=== PATIENT | female | born 1985 | race Caucasian/White ===

== ENCOUNTER 2017-02-12 08:42 | Emergency (ER) | payer OTHER ==
[2017-02-12 08:47] VITALS: BP 152/77; PULSE 87; RESP 16; TEMP 98.2
--- NOTE | 2017-02-12 08:54 | ED ---
ENT HPI - General Chief complaint: ENT Stated complaint: cold symptoms, migraines, sore throat Time Seen by Provider: 02/12/17 08:48 Source: patient Mode of arrival: ambulatory Limitations: no limitations - History of Present Illness Initial comments: 31-year-old female presents emergency Department chief complaint of cough cold runny nose for 1 week. Patient states his not getting worse but not getting much better. Patient states that the muscles of some her symptoms and they are improving. Patient denies fever or chills. Patient with right ear pain, runny nose. Patient states her cough is productive at times. Patient has not been taking any Tylenol or Motrin [id number] or any other cough and cold medications. Patient denies any difficulty swallowing. Denies any nausea vomiting diarrhea constipation. - Related Data Home Medications Medication Instructions Recorded Confirmed No Known Home Medications [No 02/12/17 02/12/17 Known Home Medications] Allergies Allergy/AdvReac Type Severity Reaction Status Date / Time No Known Allergies Allergy Verified 02/12/17 08:56 Review of Systems ROS Statement: Those systems with pertinent positive or pertinent negative responses have been documented in the HPI. ROS Other: All systems not noted in ROS Statement are negative. Past Medical History Past Medical History: No Reported History History of Any Multi-Drug Resistant Organisms: MRSA Date of last positivie culture/infection: 03/15/2014 MDRO Source:: Left arm Past Surgical History: Section Past Anesthesia/Blood Transfusion Reactions: No Reported Reaction, Postoperative Nausea & Vomiting (PONV) Past Psychological History: Depression Smoking Status: Never smoker Past Alcohol Use History: None Reported Past Drug Use History: None Reported General Exam Limitations: no limitations General appearance: alert, in no apparent distress Head exam: Present: atraumatic, normocephalic, normal inspection Eye exam: Present: normal appearance, PERRL, EOMI. Absent: scleral icterus, conjunctival injection, periorbital swelling ENT exam: Present: normal exam, mucous membranes moist, TM's normal bilaterally (Minimal erythema at top of the right TM), normal external ear exam. Absent: normal oropharynx (Post nasal drainage) Neck exam: Present: normal inspection, full ROM. Absent: tenderness, meningismus, lymphadenopathy Respiratory exam: Present: normal lung sounds bilaterally. Absent: respiratory distress, wheezes, rales, rhonchi, stridor Cardiovascular Exam: Present: regular rate, normal rhythm, normal heart sounds. Absent: systolic murmur, diastolic murmur, rubs, gallop, clicks Back exam: Absent: CVA tenderness (R), CVA tenderness (L) Neurological exam: Present: alert, oriented X3, CN II-XII intact Skin exam: Present: warm, dry, intact, normal color. Absent: rash Course Vital Signs 02/12/17 08:43 Temperature 98.2 F Pulse Rate 87 Respiratory 16 Rate Blood Pressure 152/77 O2 Sat by Pulse 98 Oximetry Medical Decision Making - Medical Decision Making 31-year-old female presented emergency department for cold like symptoms. Patient has a viral URI. Patient did have minimal erythema of the right TM but does not appear to be infected. This is more injection. Patient advised to take [id number] cough and cold medications as directed. Patient will follow with primary care physician. Return parameters were discussed. Disposition Clinical Impression: Viral upper respiratory infection, Otalgia Disposition: HOME SELF-CARE Condition: Stable Instructions: Upper Respiratory Infection (ED) Additional Instructions: Take dxvv-pki-doxpami cough and cold medications as directed.Please return to the Emergency Department if symptoms worsen or any other concerns. Time of Disposition: 09:06
--- NOTE | 2017-02-12 09:30 | XR ---
EXAMINATION TYPE: XR chest 2V DATE OF EXAM: 02/12/2017 9:04 AM COMPARISON: 07/25/2012 HISTORY: 31-year-old female with pain TECHNIQUE: PA and lateral views FINDINGS: The cardiomediastinal silhouette, aorta, and pulmonary vasculature are within normal limits. Lungs an d pleural spaces are clear. IMPRESSION: No acute cardiopulmonary process.
== END 2017-02-12 09:12 | disposition home or self-care (01) ==
LOC: EC 08:42
DX: J06.9 Acute upper respiratory infection, unspecified (principal); H92.01 Otalgia, right ear
CPT/HCPCS: 71020; 99283

== ENCOUNTER 2017-03-04 22:00 | Emergency (ER) | payer OTHER ==
[2017-03-04 22:07] VITALS: TEMP 98.5
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
--- NOTE | 2017-03-04 23:04 | XR ---
EXAM: XR Left Finger(s), 2 or More Views CLINICAL HISTORY: Reason: Pain TECHNIQUE: Frontal, lateral and oblique views of finger(s) of the left hand. COMPARISON: No relevant prior studies available. FINDINGS: Bones/joints: No acute fracture. No dislocation. Soft tissues: Tiny 1 mm density in the dorsal soft tissues of the ring finger, near the distal aspect of the proximal phalanx. Overlying soft tissue edema. IMPRESSION: Tiny 1 mm density in the dorsal soft tissues of the ring finger, near the distal aspect of the proximal phalanx, suspicious for foreign body. Overlying soft tissue edema.
[2017-03-04 23:34] VITALS: BP 152/84; PULSE 78; RESP 16
== END 2017-03-04 23:34 | disposition home or self-care (01) ==
LOC: EC 22:00
DX: S60.455A Superficial foreign body of left ring finger, initial encounter (principal); W25.XXXA Contact with sharp glass, initial encounter
CPT/HCPCS: 10120; 99283

== ENCOUNTER 2017-06-11 15:51 | Emergency (ER) | payer OTHER ==
[2017-06-11 16:05] VITALS: BP 148/88; PULSE 100; RESP 20; TEMP 99.2
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
== END 2017-06-11 17:24 | disposition left against medical advice (07) ==
LOC: EC 15:51
DX: S09.90XA Unspecified injury of head, initial encounter (principal); Z86.73 Personal history of transient ischemic attack (TIA), and cerebral infarction without residual deficits; Z53.29 Procedure and treatment not carried out because of patient's decision for other reasons; Y04.0XXA Assault by unarmed brawl or fight, initial encounter
CPT/HCPCS: 70450; 80306; 81025; 99284

== ENCOUNTER 2017-07-05 12:21 | Emergency (ER) | payer OTHER ==
[2017-07-05 12:45] VITALS: RESP 18
[2017-07-05 13:19] LABS: Appearance,Urine Cloudy (Clear); Bilirubin,Urine Negative (Negative); Glucose,Urine (UA) Negative (Negative); Ketones,Urine Negative (Negative); Leukocyte Esterase,Urine Large (Negative); Mucus,Urine Moderate /hpf; Nitrite,Urine Negative (Negative); Particle Count 7295; Protein,Urine 1+ (Negative); RBC,Urine 6 /hpf (0-5); Specific Gravity,Urine 1.024 (1.001-1.035); Squamous Epithelial Cell,Urine 3 /hpf (0-4); UA Billing (MACRO vs. MICRO) MICRO; WBC,Urine >182 /hpf (0-5)
[2017-07-05] MEDS ORDERED: cefTRIAXone 1,000 MG VIAL (IM USE) IM STA (13:49)
--- NOTE | 2017-07-05 13:53 | ED ---
General Adult HPI - General Chief complaint: Urogenital Stated complaint: Poss UTI 12 weeks Time Seen by Provider: 07/05/17 13:42 Source: patient, RN notes reviewed Mode of arrival: ambulatory Limitations: no limitations - History of Present Illness Initial comments: Patient 31-year-old female who presents emergency room today with chief complaint of an tract infection. She does not that she is approximately 12 weeks . She states that she's had positive test at her [facility]. Patient does admit to dysuria or burning sensation and increased urinary frequency. Patient states feels similar to urinary tract infections that she's had in the past. She denies any complaints symptoms. Denies any vaginal bleeding or discharge. Patient denies any recent fever, chills, shortness of breath, chest pain, back pain, abdominal pain, nausea or vomiting, numbness or tingling, constipation or diarrhea, headaches or visual changes, or any other complaints. - Related Data Previous Rx's Medication Instructions Recorded Nitrofurantoin Monohyd/M-Cryst 100 mg PO Q12HR #14 cap 07/05/17 [Macrobid] Phenazopyridine [Pyridium] 100 mg PO TID 3 Days 07/05/17 Allergies Allergy/AdvReac Type Severity Reaction Status Date / Time No Known Allergies Allergy Verified 07/05/17 12:45 Review of Systems ROS Statement: Those systems with pertinent positive or pertinent negative responses have been documented in the HPI. ROS Other: All systems not noted in ROS Statement are negative. Past Medical History Past Medical History: No Reported History History of Any Multi-Drug Resistant Organisms: MRSA Date of last positivie culture/infection: 03/15/2014 MDRO Source:: Left arm Past Surgical History: Section Past Anesthesia/Blood Transfusion Reactions: No Reported Reaction, Postoperative Nausea & Vomiting (PONV) Past Psychological History: Depression Smoking Status: Never smoker Past Alcohol Use History: None Reported Past Drug Use History: None Reported General Exam - General Exam Comments Initial Comments: General: The patient is awake and alert, in no distress, and does not appear acutely ill. Eye: Pupils are equal, round and reactive to light, extra-ocular movements are intact. No nystagmus. There is normal conjunctiva bilaterally. No signs of icterus. Ears, nose, mouth and throat: There are moist mucous membranes and no oral lesions. Neck: The neck is supple, there is no tenderness or JVD. Cardiovascular: There is a regular rate and rhythm. No murmur, rub or gallop is appreciated. Respiratory: Lungs are clear to auscultation, respirations are non-labored, breath sounds are equal. No wheezes, stridor, rales, or rhonchi. Gastrointestinal: Soft, non-distended, non-tender abdomen without masses or organomegaly noted. There is no rebound or guarding present. No CVA tenderness. Bowel sounds are unremarkable. Musculoskeletal: Normal ROM, no tenderness. Strength 5/5. Sensation intact. Pulses equal bilaterally 2+. Neurological: A&O x 3. CN II-XII intact, There are no obvious motor or sensory deficits. Coordination appears grossly intact. Speech is normal. Skin: Skin is warm and dry and no rashes or lesions are noted. Psychiatric: Cooperative, appropriate mood & affect, normal judgment. Limitations: no limitations Course Vital Signs 07/05/17 12:43 Temperature 97.7 F Pulse Rate 80 Respiratory 18 Rate Blood Pressure 148/85 O2 Sat by Pulse 98 Oximetry Medical Decision Making - Medical Decision Making Patient's vitals are stable here the emergency room. No fever. Patient shows no signs of distress. Abdomen soft nontender. No flank pain. Patient's test negative here in the Emergency room. This was discussed with the patient. Patient does have evidence for urinary tract infection. Urine culture is pending. Patient will be given dose Rocephin here in the emergency room continue on antibiotics of Macrobid at home. She is advised to follow-up with her [facility] in the next 1-2 days. Advised return here to the emergency room symptoms increase worsen or for any other concerns. - Lab Data Lab Results 07/05/17 07/05/17 Range/Units 12:58 12:58 Urine Color Yellow Urine Appearance Cloudy H (Clear) Urine pH 6.0 (5.0-8.0) Ur Specific [place] 1.024 (1.001-1.035) Urine Protein 1+ H (Negative) Urine Glucose (UA) Negative (Negative) Urine Ketones Negative (Negative) Urine Blood Small H (Negative) Urine Nitrite Negative (Negative) Urine Bilirubin Negative (Negative) Urine Urobilinogen 2.0 (<2.0) mg/dL Ur Leukocyte Esterase Large H (Negative) Urine RBC 6 H (0-5) /hpf Urine WBC >182 H (0-5) /hpf Ur Squamous Epith Cells 3 (0-4) /hpf Urine Mucus Moderate H (None) /hpf Urine HCG, Qual Not Detected (Not Detectd) Disposition Clinical Impression: UTI (urinary tract infection) Disposition: HOME SELF-CARE Condition: Good Instructions: Urinary Tract Infection in Women (ED) Additional Instructions: Please use medication as discussed. Please follow-up with [facility] in the next 2 days. Please return to emergency room if the symptoms increase or worsen or for any other concerns. Prescriptions: Nitrofurantoin Monohyd/M-Cryst [Macrobid] 100 mg PO Q12HR #14 cap Phenazopyridine [Pyridium] 100 mg PO TID 3 Days Referrals: Deniz Carpenter MD [Primary Care Provider] - 1-2 days Dilia Rodriguez DO [Doctor of Osteopathic Medicine] - 1-2 days Time of Disposition: 13:52
[2017-07-05 14:05] VITALS: BP 127/68; PULSE 88; TEMP 98.2
== END 2017-07-05 14:04 | disposition home or self-care (01) ==
LOC: EC 12:21
DX: O23.41 Unspecified infection of urinary tract in pregnancy, first trimester (principal); Z3A.12 12 weeks gestation of pregnancy; Z86.14 Personal history of Methicillin resistant Staphylococcus aureus infection
CPT/HCPCS: 81001; 81025; 87086; 99283; 96372; J0696

== ENCOUNTER 2017-09-30 09:20 | Emergency (ER) | payer OTHER ==
[2017-09-30 09:26] VITALS: RESP 16
[2017-09-30] MEDS ORDERED: ONDANSETRON 4 MG/2 ML VIAL IVP STA ×2 (10:12→10:45)
[2017-09-30] MEDS ORDERED: SODIUM CHLORIDE 0.9% 2,000 ML IV STA (10:12)
[2017-09-30] MEDS ORDERED: RX INFO: IV CONTRAST WAS GIVEN 1 EACH MISC MISCELLANE PRN (10:12)
[2017-09-30 10:31] LABS: Basophils % (A) 0 %; CH 25.3; CHCM 31.4; Eosinophils # (A) 0.1 k/uL (0-0.7); Eosinophils % (A) 1 %; HCT 39.7 % (34.0-46.0); HDW 2.77; HGB 12.4 gm/dL (11.4-16.0); Hypochromasia Slight; Luc # (Auto) 0.07; Luc % (Auto) 1; Lymphocytes # (A) 0.7 k/uL (1.0-4.8); Lymphocytes % (A) 8 %; MCH 25.2 pg (25.0-35.0); MCHC 31.2 g/dL (31.0-37.0); MCV 80.8 fL (80.0-100.0); Mean Platelet Volume 7.1; Monocytes # (A) 0.3 k/uL (0-1.0); Monocytes % (A) 4 %; Neutrophils # (A) 7.4 k/uL (1.3-7.7); Neutrophils % (A) 86 %; RBC 4.91 m/uL (3.80-5.40); RDW 15.8 % (11.5-15.5); WBC 8.6 k/uL (3.8-10.6); WBC (Perox) 8.85
[2017-09-30 10:39] LABS: ALT 31 U/L (9-52); AST 20 U/L (14-36); Alkaline Phosphatase 96 U/L (38-126); Amylase 54 U/L (30-110); Anion Gap 11 mmol/L; Blood Urea Nitrogen 18 mg/dL (7-17); Calcium 9.1 mg/dL (8.4-10.2); Carbon Dioxide 26 mmol/L (22-30); Chloride 102 mmol/L (98-107); Glucose 98 mg/dL (74-99); Non-African American GFR(MDRD) >60 (>60 ml/min/1.73 sqM); Potassium 4.3 mmol/L (3.5-5.1); Sodium 139 mmol/L (137-145)
[2017-09-30 10:49] LABS: Amorphous Sediment,Urine Rare /hpf; Appearance,Urine Cloudy (Clear); Bilirubin,Urine Negative (Negative); Glucose,Urine (UA) Negative (Negative); Ketones,Urine Negative (Negative); Leukocyte Esterase,Urine Large (Negative); Mucus,Urine Rare /hpf; Nitrite,Urine Negative (Negative); PH, Urine 6.5 (5.0-8.0); Particle Count 2810; Protein,Urine Trace (Negative); RBC,Urine 2 /hpf (0-5); Specific Gravity,Urine 1.017 (1.001-1.035); Squamous Epithelial Cell,Urine 6 /hpf (0-4); UA Billing (MACRO vs. MICRO) MICRO; Urobilinogen,Urine <2.0 mg/dL (<2.0); WBC,Urine 3 /hpf (0-5)
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
--- NOTE | 2017-09-30 12:11 | ED ---
Abdominal Pain HPI - General Chief Complaint: Abdominal Pain Stated Complaint: Vomiting Time Seen by Provider: 09/30/17 09:26 Source: patient, RN notes reviewed Mode of arrival: ambulatory Limitations: no limitations - History of Present Illness Initial Comments: This a 31-year-old female presents emergency Department chief complaint nausea and diarrhea. Patient states symptoms started last night early this morning. Patient states that she's had very loose watery diarrhea abdominal cramping. She's had several episodes of vomiting. Patient denies any sick contacts. Patient states that she's felt hot and cold. Patient denies any sore throat, cough, chest pain, shortness breath, back pain, flank pain. She denies any chance . - Related Data Previous Rx's Medication Instructions Recorded Ondansetron Odt [Zofran Odt] 4 mg PO Q8HR PRN #10 tab 09/30/17 Allergies Allergy/AdvReac Type Severity Reaction Status Date / Time No Known Allergies Allergy Verified 09/30/17 09:54 Review of Systems ROS Statement: Those systems with pertinent positive or pertinent negative responses have been documented in the HPI. ROS Other: All systems not noted in ROS Statement are negative. Past Medical History Past Medical History: No Reported History History of Any Multi-Drug Resistant Organisms: MRSA Date of last positivie culture/infection: 03/15/2014 MDRO Source:: Left arm Past Surgical History: Section Past Anesthesia/Blood Transfusion Reactions: No Reported Reaction, Postoperative Nausea & Vomiting (PONV) Past Psychological History: Depression Smoking Status: Never smoker Past Alcohol Use History: None Reported Past Drug Use History: None Reported General Exam Limitations: no limitations General appearance: alert, in no apparent distress Head exam: Present: atraumatic, normocephalic, normal inspection Neck exam: Present: normal inspection. Absent: tenderness, meningismus, lymphadenopathy Respiratory exam: Present: normal lung sounds bilaterally. Absent: respiratory distress, wheezes, rales, rhonchi, stridor Cardiovascular Exam: Present: regular rate, normal rhythm, normal heart sounds. Absent: systolic murmur, diastolic murmur, rubs, gallop, clicks GI/Abdominal exam: Present: soft, tenderness (Mild diffuse), normal bowel sounds. Absent: distended, guarding, rebound, rigid Back exam: Absent: CVA tenderness (R), CVA tenderness (L) Course Vital Signs 09/30/17 09/30/17 09:23 10:25 Temperature 100.0 F H Pulse Rate 105 H 100 Respiratory 16 16 Rate Blood Pressure 139/87 162/97 O2 Sat by Pulse 99 100 Oximetry Medical Decision Making - Medical Decision Making 31-year-old female presented emergency from for nausea vomiting diarrhea. Patient is productive IV fluids, antiemetics. Patient's laboratory, CT was reviewed no acute abnormality. Patient's symptoms are consistent with gastroenteritis. Patient will be discharged with Zofran advised to increase her fluids and food as tolerated and return for any worsening symptoms. - Lab Data Result diagrams: 09/30/17 09:58 09/30/17 09:58 Lab Results 09/30/17 09/30/17 09/30/17 Range/Units 09:58 09:58 09:58 WBC 8.6 (3.8-10.6) k/uL RBC 4.91 (3.80-5.40) m/uL Hgb 12.4 (11.4-16.0) gm/dL Hct 39.7 (34.0-46.0) % MCV 80.8 (80.0-100.0) fL MCH 25.2 (25.0-35.0) pg MCHC 31.2 (31.0-37.0) g/dL RDW 15.8 H (11.5-15.5) % Plt Count 353 (150-450) k/uL Neutrophils % 86 % Lymphocytes % 8 % Monocytes % 4 % Eosinophils % 1 % Basophils % 0 % Neutrophils # 7.4 (1.3-7.7) k/uL Lymphocytes # 0.7 L (1.0-4.8) k/uL Monocytes # 0.3 (0-1.0) k/uL Eosinophils # 0.1 (0-0.7) k/uL Basophils # 0.0 (0-0.2) k/uL Hypochromasia Slight Sodium 139 (137-145) mmol/L Potassium 4.3 (3.5-5.1) mmol/L Chloride 102 (98-107) mmol/L Carbon Dioxide 26 (22-30) mmol/L Anion Gap 11 mmol/L BUN 18 H (7-17) mg/dL Creatinine 0.66 (0.52-1.04) mg/dL Est GFR (MDRD) Af Amer >60 (>60 ml/min/1.73 sqM) Est GFR (MDRD) Non-Af >60 (>60 ml/min/1.73 sqM) Glucose 98 (74-99) mg/dL Plasma Lactic Acid [place] 1.7 (0.7-2.0) mmol/L Calcium 9.1 (8.4-10.2) mg/dL Total Bilirubin 1.0 (0.2-1.3) mg/dL AST 20 (14-36) U/L ALT 31 (9-52) U/L Alkaline Phosphatase 96 (38-126) U/L Total Protein 8.0 (6.3-8.2) g/dL Albumin 4.5 (3.5-5.0) g/dL Amylase 54 (30-110) U/L Lipase 69 (23-300) U/L Urine Color Urine Appearance (Clear) Urine pH (5.0-8.0) Ur Specific [place] (1.001-1.035) Urine Protein (Negative) Urine Glucose (UA) (Negative) Urine Ketones (Negative) Urine Blood (Negative) Urine Nitrite (Negative) Urine Bilirubin (Negative) Urine Urobilinogen (<2.0) mg/dL Ur Leukocyte Esterase (Negative) Urine RBC (0-5) /hpf Urine WBC (0-5) /hpf Ur Squamous Epith Cells (0-4) /hpf Amorphous Sediment (None) /hpf Urine Mucus (None) /hpf Urine HCG, Qual (Not Detectd) 09/30/17 09/30/17 Range/Units 10:35 10:35 WBC (3.8-10.6) k/uL RBC (3.80-5.40) m/uL Hgb (11.4-16.0) gm/dL Hct (34.0-46.0) % MCV (80.0-100.0) fL MCH (25.0-35.0) pg MCHC (31.0-37.0) g/dL RDW (11.5-15.5) % Plt Count (150-450) k/uL Neutrophils % % Lymphocytes % % Monocytes % % Eosinophils % % Basophils % % Neutrophils # (1.3-7.7) k/uL Lymphocytes # (1.0-4.8) k/uL Monocytes # (0-1.0) k/uL Eosinophils # (0-0.7) k/uL Basophils # (0-0.2) k/uL Hypochromasia Sodium (137-145) mmol/L Potassium (3.5-5.1) mmol/L Chloride (98-107) mmol/L Carbon Dioxide (22-30) mmol/L Anion Gap mmol/L BUN (7-17) mg/dL Creatinine (0.52-1.04) mg/dL Est GFR (MDRD) Af Amer (>60 ml/min/1.73 sqM) Est GFR (MDRD) Non-Af (>60 ml/min/1.73 sqM) Glucose (74-99) mg/dL Plasma Lactic Acid [place] (0.7-2.0) mmol/L Calcium (8.4-10.2) mg/dL Total Bilirubin (0.2-1.3) mg/dL AST (14-36) U/L ALT (9-52) U/L Alkaline Phosphatase (38-126) U/L Total Protein (6.3-8.2) g/dL Albumin (3.5-5.0) g/dL Amylase (30-110) U/L Lipase (23-300) U/L Urine Color Yellow Urine Appearance Cloudy H (Clear) Urine pH 6.5 (5.0-8.0) Ur Specific [place] 1.017 (1.001-1.035) Urine Protein Trace H (Negative) Urine Glucose (UA) Negative (Negative) Urine Ketones Negative (Negative) Urine Blood Trace H (Negative) Urine Nitrite Negative (Negative) Urine Bilirubin Negative (Negative) Urine Urobilinogen <2.0 (<2.0) mg/dL Ur Leukocyte Esterase Large H (Negative) Urine RBC 2 (0-5) /hpf Urine WBC 3 (0-5) /hpf Ur Squamous Epith Cells 6 H (0-4) /hpf Amorphous Sediment Rare H (None) /hpf Urine Mucus Rare H (None) /hpf Urine HCG, Qual Not Detected (Not Detectd) Disposition Clinical Impression: Gastroenteritis Disposition: HOME SELF-CARE Condition: Stable Instructions: Gastroenteritis (ED) Additional Instructions: Please return to the Emergency Department if symptoms worsen or any other concerns. Prescriptions: Ondansetron Odt [Zofran Odt] 4 mg PO Q8HR PRN #10 tab PRN Reason: Nausea Referrals: None,Stated [Primary Care Provider] - 1-2 days Time of Disposition: 12:11
[2017-09-30 12:41] VITALS: BP 132/74; PULSE 92; TEMP 97.9
== END 2017-09-30 12:30 | disposition home or self-care (01) ==
LOC: EC 09:20
DX: K52.9 Noninfective gastroenteritis and colitis, unspecified (principal); Z86.14 Personal history of Methicillin resistant Staphylococcus aureus infection
CPT/HCPCS: 36415; 80053; 82150; 83605; 83690; 85025; 81001; 81025; 74177; 99284; 96374; 96376; 96361 ×2; J2405; Q9967

== ENCOUNTER 2017-10-26 10:06 | Emergency (ER) | payer OTHER ==
[2017-10-26 10:32] VITALS: BP 137/66; PULSE 90; RESP 16; TEMP 98.8
[2017-10-26] MEDS ORDERED: TOBRAMYCIN 0.3% OPHTH DROPS 5 ML BTL LEFT EYE STA (10:54)
--- NOTE | 2017-10-26 11:00 | ED ---
General Adult HPI - General Chief complaint: Eye Problems Stated complaint: [place] eye Time Seen by Provider: 10/26/17 10:40 Source: patient, RN notes reviewed Mode of arrival: ambulatory Limitations: no limitations - History of Present Illness Initial comments: Patient is a pleasant 32-year-old female presenting to the emergency department with left eye redness. Onset was early this morning. Patient has mild irritation. No significant pain. Patient has had crusting of the left eye. Patient has had strandy discharge. No involvement of the right eye. No decrease in vision. No history of chronic eye problems. - Related Data Previous Rx's Medication Instructions Recorded Ondansetron Odt [Zofran Odt] 4 mg PO Q8HR PRN #10 tab 09/30/17 Allergies Allergy/AdvReac Type Severity Reaction Status Date / Time No Known Allergies Allergy Verified 10/26/17 10:28 Review of Systems ROS Statement: Those systems with pertinent positive or pertinent negative responses have been documented in the HPI. ROS Other: All systems not noted in ROS Statement are negative. Constitutional: Denies: fever Eyes: Reports: eye discharge. Denies: eye pain, vision change ENT: Denies: ear pain Respiratory: Denies: cough Cardiovascular: Denies: palpitations Endocrine: Denies: fatigue Gastrointestinal: Denies: abdominal pain Genitourinary: Denies: dysuria Musculoskeletal: Denies: back pain Skin: Denies: rash Neurological: Denies: weakness Past Medical History Past Medical History: Hypertension History of Any Multi-Drug Resistant Organisms: MRSA Date of last positivie culture/infection: 03/15/2014 MDRO Source:: Left arm Past Surgical History: Section Past Anesthesia/Blood Transfusion Reactions: No Reported Reaction, Postoperative Nausea & Vomiting (PONV) Past Psychological History: Depression Smoking Status: Never smoker Past Alcohol Use History: None Reported Past Drug Use History: None Reported General Exam Limitations: no limitations General appearance: alert, in no apparent distress Head exam: Present: atraumatic Eye exam: Present: PERRL, EOMI, conjunctival injection, other (No uptake with flurosceine stain.) ENT exam: Present: normal oropharynx Neck exam: Present: normal inspection Respiratory exam: Present: normal lung sounds bilaterally Cardiovascular Exam: Present: regular rate, normal rhythm GI/Abdominal exam: Present: soft. Absent: tenderness Extremities exam: Present: normal inspection Neurological exam: Present: alert Psychiatric exam: Present: normal affect, normal mood Skin exam: Present: normal color Course Vital Signs 10/26/17 10:28 Temperature 98.8 F Pulse Rate 90 Respiratory 16 Rate Blood Pressure 137/66 O2 Sat by Pulse 96 Oximetry Disposition Clinical Impression: Conjunctivitis Disposition: HOME SELF-CARE Condition: Stable Instructions: Conjunctivitis (ED) Additional Instructions: Please follow-up with primary care physician in the next day or 2 for recheck. Return for visual loss, swelling, fevers, worsening symptoms or other concerns. Use Tobrex eyedrops: 1 drop to left eye every 4 hours while awake for one week. Referrals: Laith Fuentes MD [STAFF PHYSICIAN] - 1-2 days Time of Disposition: 10:59
== END 2017-10-26 11:18 | disposition home or self-care (01) ==
LOC: EC 10:06
DX: H10.9 Unspecified conjunctivitis (principal); Z86.14 Personal history of Methicillin resistant Staphylococcus aureus infection
CPT/HCPCS: 99283

== ENCOUNTER → 2018-01-07 | Outpatient (CLI) | payer OTHER | END | disposition home or self-care (01) | LOC: LABWHC1 12:38 | PROVIDERS: ATTEND Nurse Practitioner | DX: F31.81 Bipolar II disorder (principal) | CPT/HCPCS: 36415; 80183 ==

== ENCOUNTER 2018-05-06 20:25 | Emergency (ER) | payer OTHER ==
--- NOTE | 2018-05-06 21:26 | ED ---
General Adult HPI - General Chief complaint: Wound/Laceration Stated complaint: hand lac Time Seen by Provider: 05/06/18 21:04 Source: patient, RN notes reviewed Mode of arrival: ambulatory Limitations: no limitations - History of Present Illness Initial comments: Patient is a 32-year-old female presented to the emergency room today with a chief complaint of laceration to the left hand. Patient states that she actually locks up out of the house. States that she try to get into a window when it broke causing laceration. Patient states her tetanus is up-to-date. She denies any other complaints or symptoms. Patient denies any recent fever, chills, shortness of breath, chest pain, back pain, abdominal pain, nausea or vomiting, numbness or tingling, headaches or visual changes, or any other complaints. - Related Data Previous Rx's Medication Instructions Recorded Ondansetron Odt [Zofran Odt] 4 mg PO Q8HR PRN #10 tab 09/30/17 Allergies Allergy/AdvReac Type Severity Reaction Status Date / Time No Known Allergies Allergy Verified 05/06/18 21:03 Review of Systems ROS Statement: Those systems with pertinent positive or pertinent negative responses have been documented in the HPI. ROS Other: All systems not noted in ROS Statement are negative. Past Medical History Past Medical History: Hypertension History of Any Multi-Drug Resistant Organisms: MRSA Date of last positivie culture/infection: 03/15/2014 MDRO Source:: Left arm Past Surgical History: Section Past Anesthesia/Blood Transfusion Reactions: No Reported Reaction, Postoperative Nausea & Vomiting (PONV) Past Psychological History: Depression Smoking Status: Never smoker Past Alcohol Use History: None Reported Past Drug Use History: None Reported General Exam - General Exam Comments Initial Comments: General: The patient is awake and alert, in no distress, and does not appear acutely ill. Eye: Pupils are equal, round and reactive to light, extra-ocular movements are intact. No nystagmus. There is normal conjunctiva bilaterally. No signs of icterus. Ears, nose, mouth and throat: There are moist mucous membranes and no oral lesions. Neck: The neck is supple, there is no tenderness or JVD. Musculoskeletal: Normal ROM, no tenderness. Strength 5/5. Sensation intact. Pulses equal bilaterally 2+. Neurological: A&O x 3. CN II-XII intact, There are no obvious motor or sensory deficits. Coordination appears grossly intact. Speech is normal. Skin: Patient does have half centimeter laceration at the distal aspect of the right thumb. No active bleeding. Deep tissue involvement. Superficial skin flap. Patient also has second half centimeter laceration over the medial aspect of the right hand with no active bleeding. The skin has been avulsed currently. Psychiatric: Cooperative, appropriate mood & affect, normal judgment. Limitations: no limitations Course Vital Signs 05/06/18 21:00 Temperature 98.3 F Pulse Rate 79 Respiratory 18 Rate Blood Pressure 164/104 O2 Sat by Pulse 99 Oximetry Medical Decision Making - Medical Decision Making Patient's x-ray was reviewed showing no foreign bodies. Patient does have 2 small superficial lacerations no need for suturing. Patient will be discharged home. Disposition Clinical Impression: Laceration Disposition: HOME SELF-CARE Condition: Good Instructions: Laceration (ED) Additional Instructions: Please watch for any signs of infection. Please change bandages twice daily. Please return for any other concerns. Is patient prescribed a controlled substance at d/c from ED?: No Referrals: Deniz Carpenter MD [Primary Care Provider] - 1-2 days Time of Disposition: 21:25
--- NOTE | 2018-05-06 21:33 | XR ---
PROCEDURE: XR hand complete LT - 3V DATE AND TIME: 05/06/2018 9:19 PM REFERRING PHYSICIAN: Angelito Belcher CLINICAL INDICATION: PHH, Pain, several lacerations of the left hand after punching a window TECHNIQUE: Department protocol. COMPARISON: None FINDINGS: There is no fracture or malalignment. The soft tissues are unremarkable. IMPRESSION: NO ACUTE PROCESS.
[2018-05-06 21:34] VITALS: BP 160/83; PULSE 7; RESP 16; TEMP 97.8
== END 2018-05-06 21:34 | disposition home or self-care (01) ==
LOC: EC 20:25
DX: S61.412A Laceration without foreign body of left hand, initial encounter (principal); Z86.14 Personal history of Methicillin resistant Staphylococcus aureus infection; W22.8XXA Striking against or struck by other objects, initial encounter; Y93.89 Activity, other specified
CPT/HCPCS: 99283

== ENCOUNTER 2018-05-09 02:21 | Emergency (ER) | payer OTHER ==
[2018-05-09] MEDS ORDERED: SODIUM CHLORIDE 0.9% 500 ML IV STA (02:33)
[2018-05-09 02:58] LABS: Basophils % (A) 1 %; Eosinophils # (A) 0.1 k/uL (0-0.7); Eosinophils % (A) 2 %; HCT 31.6 % (34.0-46.0); HGB 9.9 gm/dL (11.4-16.0); Hypochromasia Slight; Lymphocytes % (A) 37 %; MCH 25.5 pg (25.0-35.0); MCHC 31.4 g/dL (31.0-37.0); MCV 81.2 fL (80.0-100.0); Mean Platelet Volume 6.6; Monocytes # (A) 0.2 k/uL (0-1.0); Monocytes % (A) 4 %; Neutrophils % (A) 56 %; Platelet Count 319 k/uL (150-450); RBC 3.88 m/uL (3.80-5.40); RDW 14.7 % (11.5-15.5); WBC 5.4 k/uL (3.8-10.6)
[2018-05-09 03:10] LABS: ALT 24 U/L (9-52); AST 15 U/L (14-36); Acetaminophen <10.0 ug/mL; Albumin 3.4 g/dL (3.5-5.0); Alcohol <10 mg/dL; Alkaline Phosphatase 62 U/L (38-126); Anion Gap 7 mmol/L; Blood Urea Nitrogen 15 mg/dL (7-17); Calcium 8.7 mg/dL (8.4-10.2); Carbon Dioxide 25 mmol/L (22-30); Chloride 107 mmol/L (98-107); Glucose 145 mg/dL (74-99); Potassium 3.2 mmol/L (3.5-5.1); Salicylate <1.0 mg/dL; Sodium 139 mmol/L (137-145); Total Bilirubin 0.3 mg/dL (0.2-1.3); Total Protein 5.9 g/dL (6.3-8.2)
[2018-05-09 04:35] LABS: Magnesium 2.2 mg/dL (1.6-2.3)
[2018-05-09] MEDS ORDERED: POTASSIUM BICARBONATE/CIT AC 20 MEQ TABLET.EFF PO ONE (05:49)
--- NOTE | 2018-05-09 05:51 | ED ---
Overdose HPI - General Chief Complaint: Overdose Stated Complaint: accidental overdose Time Seen by Provider: 05/09/18 02:23 Source: patient Mode of arrival: EMS Limitations: no limitations - History of Present Illness Initial Comments: This patient is a 32-year-old woman who came in to be evaluated for axonal overdose. She states she had been somewhat anxious earlier and she had taken Seroquel, and then just taking additional tablets because she was not falling asleep as she had intended. Complaint: accidental overdose -: hour(s) Intent: want to go to sleep Context: Accidental Overdose: medication error Associated Symptoms: dizziness Treatments Prior to Arrival: none - Related Data Home Medications Medication Instructions Recorded Confirmed QUEtiapine [SEROquel] 25 mg PO HS 05/09/18 05/09/18 Allergies Allergy/AdvReac Type Severity Reaction Status Date / Time No Known Allergies Allergy Verified 05/06/18 21:03 Review of Systems ROS Statement: Those systems with pertinent positive or pertinent negative responses have been documented in the HPI. ROS Other: All systems not noted in ROS Statement are negative. Constitutional: Denies: fever, chills, weakness Respiratory: Denies: cough, dyspnea Cardiovascular: Denies: chest pain, palpitations, syncope Gastrointestinal: Denies: abdominal pain, nausea, vomiting Musculoskeletal: Denies: back pain Skin: Denies: rash Neurological: Denies: headache, weakness, numbness Psychiatric: Denies: anxiety, depression, homicidal thoughts, suicidal thoughts Past Medical History Past Medical History: Hypertension History of Any Multi-Drug Resistant Organisms: MRSA Date of last positivie culture/infection: 03/15/2014 MDRO Source:: Left arm Past Surgical History: Section Past Anesthesia/Blood Transfusion Reactions: No Reported Reaction, Postoperative Nausea & Vomiting (PONV) Past Psychological History: Depression Smoking Status: Never smoker Past Alcohol Use History: None Reported Past Drug Use History: None Reported General Exam Limitations: no limitations General appearance: alert, in no apparent distress Head exam: Present: atraumatic, normocephalic Eye exam: Present: normal appearance, PERRL, EOMI. Absent: scleral icterus, conjunctival injection ENT exam: Present: normal oropharynx Neck exam: Present: normal inspection Respiratory exam: Present: normal lung sounds bilaterally. Absent: respiratory distress, wheezes, rales, rhonchi, stridor Cardiovascular Exam: Present: regular rate, normal rhythm, normal heart sounds. Absent: systolic murmur, diastolic murmur, rubs, gallop GI/Abdominal exam: Present: soft. Absent: distended, tenderness, guarding, rebound Extremities exam: Present: normal inspection, normal capillary refill. Absent: pedal edema, calf tenderness Back exam: Present: normal inspection. Absent: CVA tenderness (R), CVA tenderness (L) Neurological exam: Present: alert, oriented X3, CN II-XII intact Psychiatric exam: Present: normal affect. Absent: depressed, agitated, anxious , manic, homicidal ideation, suicidal ideation Skin exam: Present: warm, dry, intact, normal color. Absent: rash Course Vital Signs 05/09/18 05/09/18 05/09/18 02:24 04:20 06:19 Temperature 97.7 F 98.4 F Pulse Rate 86 73 93 Respiratory 20 18 17 Rate Blood Pressure 150/75 140/79 132/68 O2 Sat by Pulse 99 97 98 Oximetry Medical Decision Making - Medical Decision Making She deftly denies any suicidal ideation. She does contract for safety. Patient is observed in the emergency department and does remain alert without any evidence of airway compromise. The serial EKGs do not reveal any interval prolongations. - Lab Data Result diagrams: 05/09/18 02:45 05/09/18 02:45 Lab Results 05/09/18 05/09/18 05/09/18 Range/Units 02:45 02:45 05:26 WBC 5.4 (3.8-10.6) k/uL RBC 3.88 (3.80-5.40) m/uL Hgb 9.9 L (11.4-16.0) gm/dL Hct 31.6 L (34.0-46.0) % MCV 81.2 (80.0-100.0) fL MCH 25.5 (25.0-35.0) pg MCHC 31.4 (31.0-37.0) g/dL RDW 14.7 (11.5-15.5) % Plt Count 319 (150-450) k/uL Neutrophils % 56 % Lymphocytes % 37 % Monocytes % 4 % Eosinophils % 2 % Basophils % 1 % Neutrophils # 3.0 (1.3-7.7) k/uL Lymphocytes # 2.0 (1.0-4.8) k/uL Monocytes # 0.2 (0-1.0) k/uL Eosinophils # 0.1 (0-0.7) k/uL Basophils # 0.0 (0-0.2) k/uL Hypochromasia Slight Sodium 139 (137-145) mmol/L Potassium 3.2 L (3.5-5.1) mmol/L Chloride 107 (98-107) mmol/L Carbon Dioxide 25 (22-30) mmol/L Anion Gap 7 mmol/L BUN 15 (7-17) mg/dL Creatinine 0.70 (0.52-1.04) mg/dL Est GFR (CKD-EPI)AfAm >90 (>60 ml/min/1.73 sqM) Est GFR (CKD-EPI)NonAf >90 (>60 ml/min/1.73 sqM) Glucose 145 H (74-99) mg/dL Calcium 8.7 (8.4-10.2) mg/dL Magnesium 2.2 (1.6-2.3) mg/dL Total Bilirubin 0.3 (0.2-1.3) mg/dL AST 15 (14-36) U/L ALT 24 (9-52) U/L Alkaline Phosphatase 62 (38-126) U/L Total Protein 5.9 L (6.3-8.2) g/dL Albumin 3.4 L (3.5-5.0) g/dL Urine HCG, Qual (Not Detectd) Salicylates <1.0 mg/dL Urine Opiates Screen Not Detected (NotDetected) Ur Oxycodone Screen Not Detected (NotDetected) Urine Methadone Screen Not Detected (NotDetected) Ur Propoxyphene Screen Not Detected (NotDetected) Acetaminophen <10.0 ug/mL Ur Barbiturates Screen Not Detected (NotDetected) U Tricyclic Antidepress Detected H (NotDetected) Ur Phencyclidine Scrn Not Detected (NotDetected) Ur Amphetamines Screen Not Detected (NotDetected) U Methamphetamines Scrn Not Detected (NotDetected) U Benzodiazepines Scrn Not Detected (NotDetected) Urine Cocaine Screen Not Detected (NotDetected) U Marijuana (THC) Screen Detected H (NotDetected) Serum Alcohol <10 mg/dL 05/09/18 Range/Units 05:26 WBC (3.8-10.6) k/uL RBC (3.80-5.40) m/uL Hgb (11.4-16.0) gm/dL Hct (34.0-46.0) % MCV (80.0-100.0) fL MCH (25.0-35.0) pg MCHC (31.0-37.0) g/dL RDW (11.5-15.5) % Plt Count (150-450) k/uL Neutrophils % % Lymphocytes % % Monocytes % % Eosinophils % % Basophils % % Neutrophils # (1.3-7.7) k/uL Lymphocytes # (1.0-4.8) k/uL Monocytes # (0-1.0) k/uL Eosinophils # (0-0.7) k/uL Basophils # (0-0.2) k/uL Hypochromasia Sodium (137-145) mmol/L Potassium (3.5-5.1) mmol/L Chloride (98-107) mmol/L Carbon Dioxide (22-30) mmol/L Anion Gap mmol/L BUN (7-17) mg/dL Creatinine (0.52-1.04) mg/dL Est GFR (CKD-EPI)AfAm (>60 ml/min/1.73 sqM) Est GFR (CKD-EPI)NonAf (>60 ml/min/1.73 sqM) Glucose (74-99) mg/dL Calcium (8.4-10.2) mg/dL Magnesium (1.6-2.3) mg/dL Total Bilirubin (0.2-1.3) mg/dL AST (14-36) U/L ALT (9-52) U/L Alkaline Phosphatase (38-126) U/L Total Protein (6.3-8.2) g/dL Albumin (3.5-5.0) g/dL Urine HCG, Qual Not Detected (Not Detectd) Salicylates mg/dL Urine Opiates Screen (NotDetected) Ur Oxycodone Screen (NotDetected) Urine Methadone Screen (NotDetected) Ur Propoxyphene Screen (NotDetected) Acetaminophen ug/mL Ur Barbiturates Screen (NotDetected) U Tricyclic Antidepress (NotDetected) Ur Phencyclidine Scrn (NotDetected) Ur Amphetamines Screen (NotDetected) U Methamphetamines Scrn (NotDetected) U Benzodiazepines Scrn (NotDetected) Urine Cocaine Screen (NotDetected) U Marijuana (THC) Screen (NotDetected) Serum Alcohol mg/dL - EKG Data EKG shows normal: sinus rhythm, axis, intervals, QRS complexes, ST-T waves Rate: normal (Rate 74 bpm) Interpretation: normal EKG Disposition Clinical Impression: Drug overdose Disposition: HOME SELF-CARE Condition: Good Instructions: Adult Overdose (ED) Is patient prescribed a controlled substance at d/c from ED?: No Referrals: Deniz Carpenter MD [Primary Care Provider] - 1-2 days
[2018-05-09 06:16] LABS: Cocaine Screen,Urine Not Detected (NotDetected); Opiate Screen,Urine Not Detected (NotDetected); Phencyclidine Screen,Urine Not Detected (NotDetected)
[2018-05-09 06:17] LABS: Amphetamine Screen,Urine Not Detected (NotDetected); Barbiturate Screen,Urine Not Detected (NotDetected); Benzodiazepines Screen,Urine Not Detected (NotDetected); Methadone Screen, Urine Not Detected (NotDetected); Oxycodone Screen, Urine Not Detected (NotDetected); Tricyclic Antidepressant,Urine Detected (NotDetected); Urn Cannabinoid Scrn Detected (NotDetected)
[2018-05-09 06:20] VITALS: BP 132/68; PULSE 93; RESP 17; TEMP 98.4
== END 2018-05-09 06:20 | disposition home or self-care (01) ==
LOC: EC 02:21
DX: T43.591A Poisoning by other antipsychotics and neuroleptics, accidental (unintentional), initial encounter (principal); F32.9 Major depressive disorder, single episode, unspecified; Z86.14 Personal history of Methicillin resistant Staphylococcus aureus infection; Z79.899 Other long term (current) drug therapy
CPT/HCPCS: 36415; 80053; 80306; 80320; 81025; 83520; 83735; 85025; 93005; 99284

== ENCOUNTER 2018-08-02 16:14 | Emergency (ER) | payer OTHER ==
[2018-08-02 16:29] VITALS: BP 151/96; PULSE 84; RESP 18; TEMP 98.4
[2018-08-02 16:45] LABS: Appearance,Urine Clear (Clear); Bilirubin,Urine Negative (Negative); Blood,Urine Trace (Negative); Color,Urine Light Yellow; Glucose,Urine (UA) Negative (Negative); Ketones,Urine Negative (Negative); Leukocyte Esterase,Urine Large (Negative); Mucus,Urine Rare /hpf; Nitrite,Urine Negative (Negative); Protein,Urine Negative (Negative); RBC,Urine 1 /hpf (0-5); Specific Gravity,Urine 1.006 (1.001-1.035); Sperm,Urine Rare /hpf; Squamous Epithelial Cell,Urine 1 /hpf (0-4); Urobilinogen,Urine <2.0 mg/dL (<2.0); WBC,Urine 64 /hpf (0-5)
--- NOTE | 2018-08-02 16:48 | ED ---
Female Urogenital HPI - General Chief complaint: Urogenital Stated complaint: Poss UTI Time Seen by Provider: 08/02/18 16:30 Source: patient, RN notes reviewed, old records reviewed Mode of arrival: ambulatory Limitations: no limitations - History of Present Illness Initial comments: This is a 32-year-old female the ER for evasive dizziness related to 3 times a day 4 days, symptoms worsening. Significant pain only with urination. No fevers no abdominal pain no nausea vomiting. No recent travel history no sick contacts no underlying medical conditions MD Complaint: dysuria -: days(s) Location: suprapubic Radiation: non-radiating Severity scale (1-10): 3 Quality: burning Consistency: constant Improves with: none Worsens with: urination Last Menstrual Period: 07/29/18 Patient : Yes - Related Data Home Medications Medication Instructions Recorded Confirmed QUEtiapine [SEROquel] 25 mg PO HS 05/09/18 05/09/18 Previous Rx's Medication Instructions Recorded Nitrofurantoin Monohyd/M-Cryst 100 mg PO Q12HR #14 cap 08/02/18 [Macrobid] Allergies Allergy/AdvReac Type Severity Reaction Status Date / Time No Known Allergies Allergy Verified 08/02/18 16:29 Review of Systems ROS Statement: Those systems with pertinent positive or pertinent negative responses have been documented in the HPI. ROS Other: All systems not noted in ROS Statement are negative. Past Medical History Past Medical History: Hypertension History of Any Multi-Drug Resistant Organisms: MRSA Date of last positivie culture/infection: 03/15/2014 MDRO Source:: Left arm Past Surgical History: Section Past Anesthesia/Blood Transfusion Reactions: No Reported Reaction, Postoperative Nausea & Vomiting (PONV) Past Psychological History: Anxiety, Bipolar, Depression Smoking Status: Current every day smoker Past Alcohol Use History: None Reported Past Drug Use History: None Reported General Exam Limitations: no limitations General appearance: alert, in no apparent distress Head exam: Present: atraumatic, normocephalic, normal inspection Eye exam: Present: normal appearance, PERRL, EOMI. Absent: scleral icterus, conjunctival injection, periorbital swelling ENT exam: Present: normal exam, mucous membranes moist Neck exam: Present: normal inspection. Absent: tenderness, meningismus, lymphadenopathy Respiratory exam: Present: normal lung sounds bilaterally. Absent: respiratory distress, wheezes, rales, rhonchi, stridor Cardiovascular Exam: Present: regular rate, normal rhythm, normal heart sounds. Absent: systolic murmur, diastolic murmur, rubs, gallop, clicks GI/Abdominal exam: Present: soft, normal bowel sounds. Absent: distended, tenderness, guarding, rebound, rigid Extremities exam: Present: normal inspection, full ROM, normal capillary refill. Absent: tenderness, pedal edema, joint swelling, calf tenderness Back exam: Present: normal inspection Neurological exam: Present: alert, oriented X3, CN II-XII intact Psychiatric exam: Present: normal affect, normal mood Skin exam: Present: warm, dry, intact, normal color. Absent: rash Course Vital Signs 08/02/18 16:26 Temperature 98.4 F Pulse Rate 84 Respiratory 18 Rate Blood Pressure 151/96 O2 Sat by Pulse 98 Oximetry Medical Decision Making - Medical Decision Making 32 female the ER with dysuria. Positive urinary tract infection can be discharged home on antibiotics, no nausea or vomiting, no fevers - Lab Data Lab Results 08/02/18 08/02/18 08/02/18 Range/Units 16:33 16:33 16:33 Urine Color Light Yellow Urine Appearance Clear (Clear) Urine pH 6.0 (5.0-8.0) Ur Specific [place] 1.006 (1.001-1.035) Urine Protein Negative (Negative) Urine Glucose (UA) Negative (Negative) Urine Ketones Negative (Negative) Urine Blood Trace H (Negative) Urine Nitrite Negative (Negative) Urine Bilirubin Negative (Negative) Urine Urobilinogen <2.0 (<2.0) mg/dL Ur Leukocyte Esterase Large H (Negative) Urine RBC 1 (0-5) /hpf Urine WBC 64 H (0-5) /hpf Ur Squamous Epith Cells 1 (0-4) /hpf Urine Mucus Rare H (None) /hpf Urine Sperm Rare (None) /hpf Chlamydia Source Urine Chlamydia DNA (PCR) Positive H (Neg,Equiv) N. gonorrhoeae Source Urine N.gonorrhoeae DNA Probe Negative (Neg,Equiv) Disposition Clinical Impression: UTI (urinary tract infection) Disposition: HOME SELF-CARE Condition: Good Instructions: Urinary Tract Infection in Women (ED) Prescriptions: Nitrofurantoin Monohyd/M-Cryst [Macrobid] 100 mg PO Q12HR #14 cap Is patient prescribed a controlled substance at d/c from ED?: No Referrals: Deniz Carpenter MD [Primary Care Provider] - 1-2 days
[2018-08-03 13:42] LABS: N. gonorrhoeae,PCR Negative (Neg,Equiv); Neisseria Source Urine
[2018-08-03 13:46] LABS: C. trachomatis,PCR Positive (Neg,Equiv); Chlamydia trachomatis Source Urine
--- NOTE | 2018-08-05 01:40 | CDI ---
Documentation Clarification OP Dear Liu CHARLES, DO Please do addendum to ED report for HPI , Physical exam and MDM. Thank you, Rebecca Alanis Remote Broadcast Engineer If you have any question, Please contact regional hr manager at [phone] [facility]
== END 2018-08-02 17:36 | disposition home or self-care (01) ==
LOC: EC 16:14
DX: N39.0 Urinary tract infection, site not specified (principal); F31.9 Bipolar disorder, unspecified; F17.200 Nicotine dependence, unspecified, uncomplicated; Z79.899 Other long term (current) drug therapy
CPT/HCPCS: 81001; 87086; 87491; 87591; 99284

== ENCOUNTER 2018-09-17 13:47 | Emergency (ER) | payer OTHER ==
[2018-09-17 14:05] VITALS: RESP 16; TEMP 98.1
[2018-09-17] MEDS ORDERED: DIPH,PERTUS(ACELL)TETVAC-LF 0.5 ML VIAL IM ONE (14:35)
--- NOTE | 2018-09-17 15:08 | XR ---
EXAMINATION TYPE: XR hand complete RT DATE OF EXAM: 09/17/2018 COMPARISON: NONE HISTORY: 32-year-old female pain and small lacerations at the right third and fourth digits after put ting hand through window. TECHNIQUE: 3 views FINDINGS: Soft tissues are slightly overpenetrated. No retained radiopaque foreign body seen. No acute fracture , subluxation, or dislocation. IMPRESSION: No retained radiopaque foreign body seen. No acute osseous abnormality.
[2018-09-17] MEDS: LIDOCAINE 1% INJ 10MG/ML (20 ML MDV) SQ STA ×2 (15:22→15:36)
--- NOTE | 2018-09-17 15:43 | ED ---
General Adult HPI - General Chief complaint: Wound/Laceration Stated complaint: Hand injury Source: patient, RN notes reviewed, old records reviewed Mode of arrival: ambulatory Limitations: no limitations - History of Present Illness Initial comments: 32-year-old female patient with no pertinent past medical history presents to ED after sustaining a right hand injury. Patient punched through a window attempting to unlock a door approximately 2 hours ago. Patient presents presents to ED with approximately 6 small lacerations on her third, fourth, fifth MCP joint. Patient denies other injury sustained, weakness, numbness, paresthesias, pain in her wrist. Patient doesn't know her last tetanus. Will be updated today. Systemic: Pt denies fatigue, myalgia, fever/chills, rash. Pt denies weakness, night sweats, weight loss. Neuro: Pt denies headache, visual disturbances, syncope or pre-syncope. HEENT: Pt denies ocular discharge or irritation, otalgia, rhinorrhea, pharyngitis or notable lymphadenopathy. Cardiopulmonary: Pt denies chest pain, SOB, heart palpitations, dyspnea on exertion. Abdominal/GI: Pt denies abdominal pain, n/v/d. : Pt denies dysuria, burning w/ urination, frequency/urgency. Denies new onset urinary or bowel incontinence. MSK: Pt denies myalgia, loss of strength or function in extremities. Neuro: Pt denies new onset weakness, paresthesias. - Related Data Home Medications Medication Instructions Recorded Confirmed QUEtiapine [SEROquel] 25 mg PO HS 05/09/18 05/09/18 Previous Rx's Medication Instructions Recorded Nitrofurantoin Monohyd/M-Cryst 100 mg PO Q12HR #14 cap 08/02/18 [Macrobid] Cephalexin [Keflex] 500 mg PO Q6HR 3 Days #12 cap 09/17/18 Allergies Allergy/AdvReac Type Severity Reaction Status Date / Time No Known Allergies Allergy Verified 09/17/18 14:05 Review of Systems ROS Statement: Those systems with pertinent positive or pertinent negative responses have been documented in the HPI. ROS Other: All systems not noted in ROS Statement are negative. Past Medical History Past Medical History: Hypertension History of Any Multi-Drug Resistant Organisms: MRSA Date of last positivie culture/infection: 03/15/2014 MDRO Source:: Left arm Past Surgical History: Section Past Anesthesia/Blood Transfusion Reactions: No Reported Reaction, Postoperative Nausea & Vomiting (PONV) Past Psychological History: Anxiety, Bipolar, Depression Smoking Status: Current every day smoker Past Alcohol Use History: None Reported Past Drug Use History: None Reported General Exam - General Exam Comments Initial Comments: Constitutional: NAD, AOX3, Pt has pleasant affect. HEENT: NC/AT, trachea midline, neck supple, no lymphadenopathy. Posterior pharynx non erythematous, without exudates. External ears appear normal, without discharge. Mucous membranes moist. Eyes PERRLA, EOM intact. There is no scleral icterus. No pallor noted. Cardiopulmonary: RRR, no murmurs, rubs or gallops, no JVD noted. Lungs CTAB in anterior and posterior skinner. No peripheral edema. Abdominal exam: Abdomen soft and non-distended. Abdomen non-tender to palpation in all 4 quadrants. Bowel sounds active in LLQ. No hepatosplenomegaly. Neuro: CN II-XII grossly intact. No nuchal rigidity. MSK: Approximately a small abrasions noted at third fourth fifth MCP joints, none open, none requiring intervention. No tenderness in R hand, full ROM. No snuffbox tenderness, no tenderness to wrist. Neurovascularly intact, radial pulse +2, capillary refill <2 seconds, sensation intact. No posterior calf tenderness bilaterally, homans sign negative bilaterally. Posterior tibialis and radial pulse +2 bilaterally. Limitations: no limitations Course Vital Signs 09/17/18 14:01 Temperature 98.1 F Pulse Rate 93 Respiratory 16 Rate Blood Pressure 184/93 O2 Sat by Pulse 99 Oximetry Medical Decision Making - Medical Decision Making 32-year-old female patient presents to ED after sustaining abrasions on right hand after punched a window. Approximately 8 small abrasions on third fourth with MCP joint, none requiring intervention to close, none open, no foreign bodies noted on physical exam. Patient does not have any bony tenderness, has full range of motion of hand, neurovascularly intact. Patient tetanus updated today. Plain film of right hand did not display any foreign body, osseous abnormality, acute process. Patient to be discharged with 3 days of Keflex, strict return precautions for signs and symptoms of infection. Patient to return to ED if any signs symptoms develop including fever/chills, redness, discharge, warmth, pain range of motion, any other new symptoms. Patient to follow-up with PCP in 1-2 days. Case discussed with Dr. Schwab. Disposition Clinical Impression: Abrasion Disposition: HOME SELF-CARE Condition: Good Additional Instructions: Patient to adhere to previously discussed treatment plan and will take medication(s) as directed. Patient to follow up with PCP in 1-2 days. Patient to return to ED if symptoms do not improve. Prescriptions: Cephalexin [Keflex] 500 mg PO Q6HR 3 Days #12 cap Is patient prescribed a controlled substance at d/c from ED?: No Referrals: Deniz Carpenter MD [Primary Care Provider] - 1-2 days Time of Disposition: 15:36
[2018-09-17 15:53] VITALS: BP 132/83; PULSE 80
== END 2018-09-17 15:53 | disposition home or self-care (01) ==
LOC: EC 13:47
DX: S60.412A Abrasion of right middle finger, initial encounter (principal); S60.414A Abrasion of right ring finger, initial encounter; S60.416A Abrasion of right little finger, initial encounter; F31.9 Bipolar disorder, unspecified; F17.200 Nicotine dependence, unspecified, uncomplicated; Z23 Encounter for immunization; Z86.14 Personal history of Methicillin resistant Staphylococcus aureus infection; Z79.899 Other long term (current) drug therapy; W25.XXXA Contact with sharp glass, initial encounter; Y93.89 Activity, other specified
CPT/HCPCS: 90471; 90715; 99283

== ENCOUNTER 2018-10-01 17:19 | Observation (INO) | payer OTHER ==
--- NOTE | 2018-10-01 18:28 | CT ---
EXAMINATION TYPE: CT brain wo con DATE OF EXAM: 10/01/2018 COMPARISON: 06/11/2017 HISTORY: LT side numbness CT DLP: 1101.4 mGycm. Automated Exposure Control for Dose Reduction was Utilized. TECHNIQUE: CT scan of the head is performed without contrast. FINDINGS: Ventricles have normal size. There is no mass effect nor midline shift. There is a large ci sterna magna which is probably normal variation. Calvarium is intact. There is no evidence of intracr anial hemorrhage. IMPRESSION: Large cisterna magna unchanged compared to old exam. No acute intracranial abnormality.
[2018-10-01 19:02] LABS: Basophils % (A) 0 %; Eosinophils # (A) 0.1 k/uL (0-0.7); Eosinophils % (A) 2 %; HCT 40.1 % (34.0-46.0); HGB 12.5 gm/dL (11.4-16.0); Hypochromasia Slight; Lymphocytes % (A) 27 %; MCH 25.3 pg (25.0-35.0); MCHC 31.2 g/dL (31.0-37.0); MCV 81.2 fL (80.0-100.0); Mean Platelet Volume 7.2; Monocytes # (A) 0.2 k/uL (0-1.0); Monocytes % (A) 3 %; Neutrophils % (A) 66 %; Platelet Count 413 k/uL (150-450); RBC 4.95 m/uL (3.80-5.40); RDW 15.9 % (11.5-15.5); WBC 7.5 k/uL (3.8-10.6)
--- NOTE | 2018-10-01 19:07 | XR ---
EXAMINATION TYPE: XR chest 2V DATE OF EXAM: 10/01/2018 COMPARISON: NONE HISTORY: Dizziness TECHNIQUE: Frontal and lateral views of the chest are obtained. FINDINGS: Heart and mediastinum are normal. Lungs are clear. Diaphragm is normal. Bony thorax is int act. There is no pleural effusion. IMPRESSION: Normal chest. No change.
[2018-10-01 19:08] LABS: ALT 20 U/L (9-52); AST 18 U/L (14-36); Albumin 4.2 g/dL (3.5-5.0); Alkaline Phosphatase 83 U/L (38-126); Anion Gap 9 mmol/L; Appearance,Urine Clear (Clear); Bilirubin,Urine Negative (Negative); Blood Urea Nitrogen 11 mg/dL (7-17); Blood,Urine Trace (Negative); Calcium 9.8 mg/dL (8.4-10.2); Carbon Dioxide 23 mmol/L (22-30); Chloride 108 mmol/L (98-107); Color,Urine Yellow; Glucose 90 mg/dL (74-99); Glucose,Urine (UA) Negative (Negative); Ketones,Urine Negative (Negative); Leukocyte Esterase,Urine Trace (Negative); Mucus,Urine Occasional /hpf; Nitrite,Urine Negative (Negative); PH, Urine 6.5 (5.0-8.0); Potassium 3.9 mmol/L (3.5-5.1); Protein,Urine Negative (Negative); RBC,Urine 2 /hpf (0-5); Sodium 140 mmol/L (137-145); Specific Gravity,Urine 1.016 (1.001-1.035); Squamous Epithelial Cell,Urine 1 /hpf (0-4); Total Bilirubin 0.5 mg/dL (0.2-1.3); Total Protein 7.3 g/dL (6.3-8.2); Urobilinogen,Urine <2.0 mg/dL (<2.0)
[2018-10-01 19:18] LABS: Creatine Kinase 53 U/L (30-135)
[2018-10-01 19:31] LABS: Creatine Kinase MB 0.3 ng/mL (0.0-2.4); Troponin I <0.012 ng/mL (0.000-0.034)
--- NOTE | 2018-10-01 20:05 | CT ---
EXAMINATION TYPE: CT angio head DATE OF EXAM: 10/01/2018 7:53 PM COMPARISON: None HISTORY: Headache. CT DLP: 649.8 mGycm Automated exposure control for dose reduction was used. TECHNIQUE: Performed with IV Contrast, patient injected with 100ml mL of Isovue 370. . FINDINGS: There are 3-D post processed images. There is arterial flow in the vertebrobasilar artery system. There is arterial flow in the anterior m iddle and posterior cerebral arteries. There is a very large cisterna magna noted which is probably n ormal variation. I see no evidence of intracranial aneurysm or neovascularity. There is normal contra st opacification of the venous sinuses. There is no mass effect. There is no evidence of spasm. There is bilateral arterial flow in the intracranial internal carotid arteries. IMPRESSION: NEGATIVE CT ANGIOGRAM OF THE BRAIN. I DO NOT SEE A CAUSE FOR HEADACHES. MINIMAL MAXILLARY SINUSITIS I S NOTED.
--- NOTE | 2018-10-01 20:20 | ED ---
General Adult HPI - General Chief complaint: Neuro Symptoms/Deficit Stated complaint: lt sided numbness Time Seen by Provider: 10/01/18 17:37 Source: patient Mode of arrival: ambulatory Limitations: no limitations - History of Present Illness Initial comments: 32-year-old female who admits to past medical history of a blood pressure readings presenting today for chief complaint of paresthesias of the left upper extremity, and weakness of the left leg x 1 week. Patient states that for the past few months she has had a headache on and off, she states that sometimes the headaches cause vomiting. Patient denies any fever, chills, night sweats, neck stiffness or photophobia. For the past 2-3 days patient states that she has noticed paresthesias of the left upper extremity that spans from just distal to the left elbow to the fingertips. She states it feels as though her hand is asleep. In addition patient noted she felt as though her left leg was weaker than normal. When symptoms persisted for the past 2-3 days patient presented for evaluation. Upon ROS, pt does admit to on and off dizziness, and having LE edema on and off for years, as well as occasional epigastric pain/ diarrhea. Pt denies chest pain, shortness of breath, dyspnea upon exertion, speech changes, visual loss or changes, diplopia, gait ataxia. remainder of ROS (-). Pt is well appearing, ambulating without difficulty upon arrival. VS within acceptable limits. - Related Data Home Medications Medication Instructions Recorded Confirmed No Known Home Medications 10/01/18 10/01/18 Allergies Allergy/AdvReac Type Severity Reaction Status Date / Time No Known Allergies Allergy Verified 10/01/18 18:01 Review of Systems ROS Statement: Those systems with pertinent positive or pertinent negative responses have been documented in the HPI. ROS Other: All systems not noted in ROS Statement are negative. Constitutional: Denies: fever, chills, night sweats Eyes: Denies: eye pain ENT: Denies: ear pain, throat pain Respiratory: Denies: cough, dyspnea, hemoptysis, stridor Cardiovascular: Denies: chest pain, palpitations, dyspnea on exertion Endocrine: Denies: fatigue Gastrointestinal: Reports: abdominal pain (epigastric pain). Denies: nausea, vomiting, diarrhea, constipation, hematemesis, hematochezia Genitourinary: Denies: urgency, dysuria, frequency, hematuria Musculoskeletal: Denies: back pain Neurological: Reports: weakness, numbness, paresthesias. Denies: headache, confusion, abnormal gait, vertigo Past Medical History Past Medical History: Hypertension History of Any Multi-Drug Resistant Organisms: MRSA Date of last positivie culture/infection: 03/15/2014 MDRO Source:: Left arm Past Surgical History: Section Past Anesthesia/Blood Transfusion Reactions: No Reported Reaction, Postoperative Nausea & Vomiting (PONV) Past Psychological History: Anxiety, Bipolar, Depression Smoking Status: Current every day smoker Past Alcohol Use History: Occasional Past Drug Use History: None Reported General Exam - General Exam Comments Initial Comments: General: The patient is awake and alert, in no distress, and does not appear acutely ill. Eye: +3 mm pupils are equal, round and reactive to light, extra-ocular movements are intact. No nystagmus. There is normal conjunctiva bilaterally. No signs of icterus. Ears, nose, mouth and throat: There are moist mucous membranes and no oral lesions. Neck: The neck is supple, there is no tenderness or JVD. Cardiovascular: There is a regular rate and rhythm. No murmur, rub or gallop is appreciated. Respiratory: Lungs are clear to auscultation, respirations are non-labored, breath sounds are equal. No wheezes, stridor, rales, or rhonchi. Gastrointestinal: Soft, non-distended, non-tender abdomen without masses or organomegaly noted. There is no rebound or guarding present. No CVA tenderness. Bowel sounds are unremarkable. Musculoskeletal: Normal ROM, no tenderness. Strength 5/5 of the UE. Sensation intact of the LE equally b/l, pt complains of sensation deficit in the L arm distal to the left elbow. Radial pulses equal bilaterally 2+. Neurological: A&O x 3. CN II-XII intact, memory intact to immediately, intermediate and termite inspector recall. Able to follow simple verbal. Able to name a common object (pen). High quality, labial (pa) and lingual (la) speech. Low quality posterior pharynx/larynx (ga) voice sounds. Able to express general knowledge (days in a week). No hemineglect or inattention noted. Finger agnosia (-) and spatially oriented (identified L index finger touched R shoulder with L index finger). Light touch and temperature sensation present over the face, chest, abdomen, back, and LE bilaterally.Pt admits to sesory changes of the LE UE distal to the left elbow. Able to localize point during point localization b/l. No visible bulk atrophy, hypertrophy, fasciculations, or myoclonus of the UE or LE b/l. Full PROM in UE and LE b/l. Bilateral muscle strength 5/5 for the following muscles: deltoid, biceps, triceps, brachioradialis, wrist extensors/flexor, feet dorsiflexors/plantar flexors. Pt quadracepts/hamstrings strength appears 4.5/5. Finger to nose, finger to the examiners finger, and heel to cline coordinated and accurate b/l. Coordinated and even demonstration of hand flip, finger to thumb, and toe tap b/l. (-) Babinski. +2 brachioradialis, triceps, patellar, and Achilles DTR b/l. Gait is coordinated and even in stride with tandem walk. Maintains balance with monopedal stance. (-) Romberg. (-) pronator drift. No nuchal rigidity. (-) Brudzinskis and Kernig signs. Skin: Skin is warm and dry and no rashes or lesions are noted. Mild non pitting edema of the LE equal b/l. Psychiatric: Cooperative, appropriate mood & affect, normal judgment. Limitations: no limitations Course Vital Signs 10/01/18 10/01/18 17:28 20:56 Temperature 98.3 F Pulse Rate 86 88 Respiratory 18 16 Rate Blood Pressure 139/88 130/67 O2 Sat by Pulse 100 98 Oximetry EKG Findings - EKG Comments: EKG Findings:: A 12-lead EKG was performed and shows the following: Rate is 76, and rhythm is normal sinus. There are normal QRS complexes and normal R-wave progression. ST segments have no elevation or depression, and OH segments appear normal. Medical Decision Making - Medical Decision Making Well appearing 32yo female. Sensation deficits of the left UE and very mild left lower extremity weakness. Pt complains of frequent headaches, including one that was and on and off for the last 2-3 days. Pt appears well, remainder of neurological exam unremarkable. Pt laboratory findings stable. CT wo contrast and CTA (-). CXR (-). Trop (-). BNP (-). EKG stable no arrythmias. Pt will be admitted to Dr. Carpenter for observation for focal neurological deficits and complaints of weakness. Given history and age, I have low suspicion for TIA at this ddx more leaning towards complex migraine. Neurology will be consulted. Regular diet resumed. Pauline accepted admission after discussing case with attending physician Dr. Goodrich at 8:40pm. No further order at this time. Admitted provider will resume care continuing forward. Repeat exam prior to transition of care no changes, pt appears well-agreeable with admission. Case discussed with Dr. Goodrich prior to admission at length, reviewed all laboratory as well as radiographic imaging. He agreed with impression and plan. - Lab Data Result diagrams: 10/01/18 18:45 10/01/18 18:45 Lab Results 10/01/18 10/01/18 10/01/18 Range/Units 18:45 18:45 18:45 WBC 7.5 (3.8-10.6) k/uL RBC 4.95 (3.80-5.40) m/uL Hgb 12.5 (11.4-16.0) gm/dL Hct 40.1 (34.0-46.0) % MCV 81.2 (80.0-100.0) fL MCH 25.3 (25.0-35.0) pg MCHC 31.2 (31.0-37.0) g/dL RDW 15.9 H (11.5-15.5) % Plt Count 413 (150-450) k/uL Neutrophils % 66 % Lymphocytes % 27 % Monocytes % 3 % Eosinophils % 2 % Basophils % 0 % Neutrophils # 5.0 (1.3-7.7) k/uL Lymphocytes # 2.0 (1.0-4.8) k/uL Monocytes # 0.2 (0-1.0) k/uL Eosinophils # 0.1 (0-0.7) k/uL Basophils # 0.0 (0-0.2) k/uL Hypochromasia Slight Sodium 140 (137-145) mmol/L Potassium 3.9 (3.5-5.1) mmol/L Chloride 108 H (98-107) mmol/L Carbon Dioxide 23 (22-30) mmol/L Anion Gap 9 mmol/L BUN 11 (7-17) mg/dL Creatinine 0.62 (0.52-1.04) mg/dL Est GFR (CKD-EPI)AfAm >90 (>60 ml/min/1.73 sqM) Est GFR (CKD-EPI)NonAf >90 (>60 ml/min/1.73 sqM) Glucose 90 (74-99) mg/dL Calcium 9.8 (8.4-10.2) mg/dL Total Bilirubin 0.5 (0.2-1.3) mg/dL AST 18 (14-36) U/L ALT 20 (9-52) U/L Alkaline Phosphatase 83 (38-126) U/L Total Creatine Kinase (30-135) U/L CK-MB (CK-2) (0.0-2.4) ng/mL CK-MB (CK-2) Rel Index Troponin I (0.000-0.034) ng/mL NT-Pro-B Natriuret Pep pg/mL Total Protein 7.3 (6.3-8.2) g/dL Albumin 4.2 (3.5-5.0) g/dL Urine Color Yellow Urine Appearance Clear (Clear) Urine pH 6.5 (5.0-8.0) Ur Specific [place] 1.016 (1.001-1.035) Urine Protein Negative (Negative) Urine Glucose (UA) Negative (Negative) Urine Ketones Negative (Negative) Urine Blood Trace H (Negative) Urine Nitrite Negative (Negative) Urine Bilirubin Negative (Negative) Urine Urobilinogen <2.0 (<2.0) mg/dL Ur Leukocyte Esterase Trace H (Negative) Urine RBC 2 (0-5) /hpf Urine WBC 2 (0-5) /hpf Ur Squamous Epith Cells 1 (0-4) /hpf Urine Mucus Occasional H (None) /hpf Urine HCG, Qual (Not Detectd) 10/01/18 10/01/18 10/01/18 Range/Units 18:45 18:45 18:45 WBC (3.8-10.6) k/uL RBC (3.80-5.40) m/uL Hgb (11.4-16.0) gm/dL Hct (34.0-46.0) % MCV (80.0-100.0) fL MCH (25.0-35.0) pg MCHC (31.0-37.0) g/dL RDW (11.5-15.5) % Plt Count (150-450) k/uL Neutrophils % % Lymphocytes % % Monocytes % % Eosinophils % % Basophils % % Neutrophils # (1.3-7.7) k/uL Lymphocytes # (1.0-4.8) k/uL Monocytes # (0-1.0) k/uL Eosinophils # (0-0.7) k/uL Basophils # (0-0.2) k/uL Hypochromasia Sodium (137-145) mmol/L Potassium (3.5-5.1) mmol/L Chloride (98-107) mmol/L Carbon Dioxide (22-30) mmol/L Anion Gap mmol/L BUN (7-17) mg/dL Creatinine (0.52-1.04) mg/dL Est GFR (CKD-EPI)AfAm (>60 ml/min/1.73 sqM) Est GFR (CKD-EPI)NonAf (>60 ml/min/1.73 sqM) Glucose (74-99) mg/dL Calcium (8.4-10.2) mg/dL Total Bilirubin (0.2-1.3) mg/dL AST (14-36) U/L ALT (9-52) U/L Alkaline Phosphatase (38-126) U/L Total Creatine Kinase 53 (30-135) U/L CK-MB (CK-2) 0.3 (0.0-2.4) ng/mL CK-MB (CK-2) Rel Index 0.6 Troponin I <0.012 (0.000-0.034) ng/mL NT-Pro-B Natriuret Pep 56 pg/mL Total Protein (6.3-8.2) g/dL Albumin (3.5-5.0) g/dL Urine Color Urine Appearance (Clear) Urine pH (5.0-8.0) Ur Specific [place] (1.001-1.035) Urine Protein (Negative) Urine Glucose (UA) (Negative) Urine Ketones (Negative) Urine Blood (Negative) Urine Nitrite (Negative) Urine Bilirubin (Negative) Urine Urobilinogen (<2.0) mg/dL Ur Leukocyte Esterase (Negative) Urine RBC (0-5) /hpf Urine WBC (0-5) /hpf Ur Squamous Epith Cells (0-4) /hpf Urine Mucus (None) /hpf Urine HCG, Qual Not Detected (Not Detectd) Disposition Clinical Impression: Paresthesias, Weakness, Frequent headaches Disposition: ADMITTED IP TO THIS [facility] Condition: Stable Is patient prescribed a controlled substance at d/c from ED?: No Referrals: Deniz Carpenter MD [Primary Care Provider] - 1-2 days Time of Disposition: 20:51 Decision to Admit Reason: Admit from EC Decision Date: 10/01/18 Decision Time: 20:51
[2018-10-01] MEDS ORDERED: IBUPROFEN 400 MG TAB PO PRN (20:51)
[2018-10-01] MEDS ORDERED: NALOXONE 0.4 MG/ML 1 ML VIAL IV PRN (20:51)
[2018-10-01] MEDS ORDERED: ACETAMINOPHEN TAB 325 MG TAB PO PRN (20:51)
[2018-10-01] MEDS ORDERED: SODIUM CHLORIDE 0.9% 1,000 ML IV SCH (21:00)
[2018-10-01] MEDS ORDERED: traZODone HCL 50 MG TAB PO SCH (23:00)
[2018-10-01] MEDS: BUTALB/APAP/CAFF 50-325-40MG TAB PO PRN (23:10)
[2018-10-02] MEDS: BUTALB/APAP/CAFF 50-325-40MG TAB PO PRN ×2 (09:43→13:50)
--- NOTE | 2018-10-02 13:13 | HP ---
HISTORY AND PHYSICAL CHIEF COMPLAINT: Headache and dysesthesias in the left upper and left lower extremities. HISTORY OF PRESENT ILLNESS: The is the first admission for this 32-year-old, G3, P3, A0 white female. She presented to the emergency room with a fairly severe headache and some dysesthesias in the left arm and left leg. CT was unremarkable. She has been having some difficulty with headaches for some time. It was felt that this could represent a migraine syndrome. The evaluation in the emergency room was unremarkable and she was admitted for neurologic observation and neurologic evaluation. REVIEW OF SYSTEMS: She has had no change in the vision or the hearing and she has had no shortness of breath, chest pain, heart disease, hypertension, abdominal pain, vomiting, diarrhea, melena, hematochezia, jaundice, hematuria, frequency, urgency, renal failure, diabetes, etc. Past medical history, family history, and personal and social histories reveal that she has not been on any medications. She is not allergic to any. She does have a positive family history for migraines. She also has been complaining of difficulty of shortness of breath of late. She has had no chest pain, wheezing, asthma, etc. She does not smoke. Laboratory studies are basically normal. CT and CTA in the emergency room are normal. PHYSICAL EXAM: Blood pressure is 137/91 with a pulse 79, respirations 16. She is afebrile. GENERAL: She is overweight and in no acute distress. Skin color is normal. Skin was warm and dry. Lymph nodes are not enlarged. Head, ears, eyes, nose, mouth, and throat unremarkable. Carotids normal. Chest is clear. Cardiac exam demonstrated what sounded like a cardiac murmur during systole and there were no extra sounds. Abdomen is soft, nontender. EXTREMITIES: Normal. Neurologically, she is in intact. IMPRESSION: 1. Headache with dysesthesias in the left arm and legs. 2. Probable migraine syndrome. 3. History of bipolar depression. PLAN: 1. Bed rest. 2. IV fluids. 3. Echocardiogram. 4. Neurology consult. BRYSON / LATRICE: [id number] /
--- NOTE | 2018-10-02 14:14 | ECHOF ---
Referral Reason:transthoracic echo....murmur. MEASUREMENTS -------- HEIGHT: 170.2 cm WEIGHT: 117.5 kg BP: 118/64 RVIDd: 3.2 cm (< 3.3) IVSd: 1.0 cm (0.6 - 1.1) LVIDd: 5.0 cm (3.9 - 5.3) LVPWd: 1.1 cm (0.6 - 1.1) IVSs: 1.4 cm LVIDs: 3.9 cm LVPWs: 1.4 cm LAESV Index (A-L): 22.17 ml/m Ao Diam: 3.1 cm (2.0 - 3.7) AV Cusp: 1.9 cm (1.5 - 2.6) LA Diam: 3.6 cm (2.7 - 3.8) EPSS: 0.6 cm MV E Kin: 0.82 m/s MV DecT: 187 ms MV A Kin: 0.72 m/s MV E/A Ratio: 1.14 RAP: 5.00 mmHg RVSP: 25.11 mmHg MV EF SLOPE: 126.21 mm/s (70 - 150) MV EXCURSION: 1.81 cm (> 18.000) FINDINGS -------- Sinus rhythm. This was a technically difficult study with suboptimal views. The left ventricular size is normal. Left ventricular wall thickness is normal. Overall left vent ricular systolic function is low-normal with, an EF between 50 - 55 %. The right ventricle is normal in size and function. Normal LA size by volume 22+/-6 ml/m2. The right atrium is normal in size. The aortic valve is trileaflet, and appears structurally normal. No aortic stenosis or regurgitation. The mitral valve is normal. There is trace mitral regurgitation. Trace tricuspid regurgitation present. Right ventricular systolic pressure is normal at < 35 mmHg. There is no evidence of pulmonary hypertension. Trace/mild (physiologic) pulmonic regurgitation. The aortic root size is normal. Normal inferior vena cava with normal inspiratory collapse consistent with estimated right atrial pre ssure of 5 mmHg. There is no pericardial effusion. 3 ml of Lumason was utilized for enhancement of images. CONCLUSIONS -------- 1. Sinus rhythm. 2. This was a technically difficult study with suboptimal views. 3. The left ventricular size is normal. 4. Left ventricular wall thickness is normal. 5. Overall left ventricular systolic function is low-normal with, an EF between 50 - 55 %. 6. Normal LA size by volume 22+/-6 ml/m2. 7. 3 ml of Lumason was utilized for enhancement of images. 8. The aortic valve is trileaflet, and appears structurally normal. No aortic stenosis or regurgitati on. 9. There is trace mitral regurgitation. 10. Trace tricuspid regurgitation present. 11. Right ventricular systolic pressure is normal at < 35 mmHg. 12. There is no evidence of pulmonary hypertension. 13. Trace/mild (physiologic) pulmonic regurgitation. 14. The aortic root size is normal. 15. There is no pericardial effusion. H[employer]SCAPE FOREMAN: Federico Cervantes RDCS
[2018-10-02 15:06] VITALS: BP 130/77; PULSE 72; RESP 16; TEMP 99.2
--- NOTE | 2018-10-02 15:34 | PN ---
PROGRESS NOTE CHIEF COMPLAINT: Headache with dysesthesias in the left arm and leg. HISTORY OF PRESENT ILLNESS: This lady seems stable. She has had no new developments. Vital signs are normal. She still has a headache. PHYSICAL EXAMINATION: Pupils are equal, round and reactive. Neck is supple. Chest is clear. Cardiac exam is normal. IMPRESSION: Headache with dysesthesias in the left arm and left leg. PLAN: 1. Continue workup. 2. Neurology evaluation. MMODL / IJN: [id number] /
--- NOTE | 2018-10-02 23:35 | P.CNNES ---
History of Present Illness Consult date: 10/02/18 Requesting physician: Jaime Goodrich Reason for Consult: parasthesia & headache Chief complaint: Parasthesia and headache History of Present Illness: Patient is a 32 year old female complaints. Patient with a past medical history of hypertension with current complaints of paresthesia of the left upper and lower extremity, left lower extremity weakness and status migrainosus. Migraine is intermittent vomiting. Patient denies any fever, chills, night sweats, neck stiffness or photophobia. Patient has reports of paresthesia the past 2-3 days. Patient states that she feels as though the left hand is asleep at times. She also feels that her left leg is weaker than normal. Patient missed having intermittent dizziness and left lower extremity edema that waxes and wanes times several years. Patient also has complaints of epigastric pain and diarrhea. She has not seen a primary care physician in approximately 2-3 years for any of her waxing and waning symptoms. On contact, patient was alert and oriented 3, resting in bed in no acute distress. Review of Systems systems not noted in HPI are negative Past Medical History Past Medical History: Hypertension History of Any Multi-Drug Resistant Organisms: MRSA Date of last positivie culture/infection: 03/15/2014 MDRO Source:: Left arm Past Surgical History: Section Past Anesthesia/Blood Transfusion Reactions: Postoperative Nausea & Vomiting ( PONV) Past Psychological History: Anxiety, Bipolar, Depression Smoking Status: Never smoker Past Alcohol Use History: Occasional Past Drug Use History: None Reported - Past Family History Mother Additional Family Medical History / Comment(s): Mom's side is known to have cancers. Diabetes. Asthma. Medications and Allergies Home Medications Medication Instructions Recorded Confirmed Type No Known Home Medications 10/01/18 10/01/18 History Allergies Allergy/AdvReac Type Severity Reaction Status Date / Time No Known Allergies Allergy Verified 10/01/18 18:01 Physical Examination - Vital Signs Vital Signs: Vital Signs Temp Pulse Resp BP Pulse Ox 10/02/18 16:00 16 10/02/18 15:00 99.2 F 72 16 130/77 100 10/02/18 08:00 79 18 10/02/18 06:36 97.9 F 79 18 118/64 99 Intake and Output 10/02/18 10/02/18 10/03/18 14:59 22:59 06:59 Other: Voiding Method Toilet Toilet # Voids 3 1 # Bowel Movements 0 General appearance: Alert & oriented x3, no apparent distress. Head: Atraumatic, normocephalic, normal inspection Eyes: PERRLA, EOMI. Ear, nose and throat: Normal exam, mucous membranes moist Neck: Normal inspection, absent tenderness, lymphadenopathy. Respiratory: No increased work of breathing Cardiovascular: Regular rate, rhythm GI/abdominal: No guarding, no rigidity Extremities: moves all extremities Neurological: cranial nerves II through XII intact no lateralizing weakness no seizure activity noted on physical exam no pronator drift and no nystagmus. Strength: full in all 4 extremities Sensation: Left lower extremity: normal Right lower extremity: normal Left upper extremity: normal Right upper extremity:normal Psychological: Mood and Affect appropriate for setting Results - Laboratory Findings CBC and BMP: 10/01/18 18:45 10/01/18 18:45 Abnormal Lab Findings: Abnormal Labs 10/01/18 10/01/18 10/01/18 18:45 18:45 18:45 RDW 15.9 H Chloride 108 H Urine Blood Trace H Ur Leukocyte Esterase Trace H Urine Mucus Occasional H Assessment and Plan (1) Status migrainosus Status: Acute Code(s): G43.901 - MIGRAINE, UNSP, NOT INTRACTABLE, WITH STATUS MIGRAINOSUS SNOMED Code(s): 709274232 (2) Paresthesias Status: Acute Code(s): R20.2 - PARESTHESIA OF SKIN SNOMED Code(s): 88116292 (3) Obesity Status: Acute Code(s): E66.9 - OBESITY, UNSPECIFIED SNOMED Code(s): 235695786 Plan: Post completion of the physical exam and plan of CARE discussion with the patient, nursing advised that the patient was electing to sign out AGAINST MEDICAL ADVICE. She did not wish any further care at this time. Patient was advised that she could follow up in the office if she wished at a later date. No further orders or diagnostic workup was completed given the patient's AMA status.
--- NOTE | 2018-10-03 19:57 | DS ---
DISCHARGE SUMMARY CHIEF COMPLAINT: Paracentesis in the left upper extremity and headache. HISTORY OF PRESENT ILLNESS AND PHYSICAL EXAM: Details of this lady's history and physical can be found in the initial workup. LABORATORY STUDIES: While she was in the hospital, she had laboratory studies, details of which can be found in the laboratory section of her chart. COURSE IN HOSPITAL: After admission, she was placed on bedrest, started on intravenous fluids and started on neurologic evaluation. Studies were ordered to look her symptoms and then she suddenly signed out against medical advice when she was asked to a produce urine for drug screen. FINAL DIAGNOSES: 1. Dysesthesia in the left upper extremity. 2. Headache, etiology unknown. OPERATIONS: None. CONSULTATIONS: None. She signed out AMA. BRYSON / ROJASN: [id number] /
== END 2018-10-02 18:09 | disposition left against medical advice (07) ==
LOC: EC 17:19 → 4MS4W 20:49
PROVIDERS: ADMIT Family Medicine; ATTEND Family Medicine
DX: R51 Headache (principal); R20.2 Paresthesia of skin; R20.8 Other disturbances of skin sensation; R53.1 Weakness; R20.0 Anesthesia of skin; I10 Essential (primary) hypertension; F17.200 Nicotine dependence, unspecified, uncomplicated; R06.02 Shortness of breath; R19.7 Diarrhea, unspecified; R10.13 Epigastric pain; R60.0 Localized edema; E66.9 Obesity, unspecified; Z68.41 Body mass index [BMI] 40.0-44.9, adult; F31.30 Bipolar disorder, current episode depressed, mild or moderate severity, unspecified; F41.9 Anxiety disorder, unspecified; Z86.14 Personal history of Methicillin resistant Staphylococcus aureus infection; Z82.0 Family history of epilepsy and other diseases of the nervous system; Z83.3 Family history of diabetes mellitus; Z82.5 Family history of asthma and other chronic lower respiratory diseases; Z80.9 Family history of malignant neoplasm, unspecified
CPT/HCPCS: 99285; 36415; 93005; 83880; 80053; 82550; 82553; 83735; 84484; 85025; 81001; 81025; 71046; 70496; 70450; G0378 ×2; C8929; Q9950; Q9967; 93306

== ENCOUNTER 2018-12-16 22:08 | Emergency (ER) | payer OTHER ==
[2018-12-16 22:20] VITALS: RESP 18
--- NOTE | 2018-12-16 23:16 | ED ---
General Adult HPI - General Chief complaint: Skin/Abscess/Foreign Body Stated complaint: Poss MRSA Time Seen by Provider: 12/16/18 22:44 Source: patient, RN notes reviewed, old records reviewed Mode of arrival: ambulatory Limitations: no limitations - History of Present Illness Initial comments: 33-year-old female patient past medical history of hypertension presents to ED with 2 separate complaints. Patient initial complaint is that at work today she was struck in the back by a high low carrying a wooden pallet. Patient was that she has had in her thoracic region. Patient reports that she fell to the ground. Patient denies any trauma head or neck. Denies any LOC. Patient denies any other injury sustained. 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 Patient is ambulatory without difficulty. Patient denies any loss of bowel or bladder control, lower extremity weakness, paresthesias, saddle anesthesia. Patient has secondary complaint that she has a painful abscess in her genital region. Patient has this ongoing for approxima tely one week. Patient reports that she did have MRSA in approximately 2003 in her left axilla. Patient denies all other complaints. Systemic: Pt denies fatigue, myalgia, fever/chills, rash. Pt denies weakness, night sweats, weight loss. Neuro: Pt denies headache, visual disturbances, syncope or pre-syncope. HEENT: Pt denies ocular discharge or irritation, otalgia, rhinorrhea, pharyngitis or notable lymphadenopathy. Cardiopulmonary: Pt denies chest pain, SOB, heart palpitations, dyspnea on exertion. Abdominal/GI: Pt denies abdominal pain, n/v/d. : Pt denies dysuria, burning w/ urination, frequency/urgency. Denies new onset urinary or bowel incontinence. MSK: Pt denies myalgia, loss of strength or function in extremities. Neuro: Pt denies new onset weakness, paresthesias. - Related Data Previous Rx's Medication Instructions Recorded Sulfamethox-Tmp 800-160Mg [Bactrim 1 tab PO Q12HR #20 tab 12/17/18 DS 800-160 mg] Allergies Allergy/AdvReac Type Severity Reaction Status Date / Time No Known Allergies Allergy Verified 12/16/18 22:29 Review of Systems ROS Statement: Those systems with pertinent positive or pertinent negative responses have been documented in the HPI. ROS Other: All systems not noted in ROS Statement are negative. Past Medical History Past Medical History: No Reported History, Hypertension History of Any Multi-Drug Resistant Organisms: MRSA Date of last positivie culture/infection: 03/15/2014 MDRO Source:: Left arm Past Surgical History: Section Past Anesthesia/Blood Transfusion Reactions: Postoperative Nausea & Vomiting (PONV) Past Psychological History: Anxiety, Bipolar, Depression Smoking Status: Never smoker Past Alcohol Use History: Occasional Past Drug Use History: None Reported - Past Family History Mother Additional Family Medical History / Comment(s): Mom's side is known to have cancers. Diabetes. Asthma. General Exam - General Exam Comments Initial Comments: Constitutional: NAD, AOX3, Pt has pleasant affect. HEENT: NC/AT, trachea midline, neck supple, no lymphadenopathy. Posterior pharynx non erythematous, without exudates. External ears appear normal, without discharge. Mucous membranes moist. Eyes PERRLA, EOM intact. There is no scleral icterus. No pallor noted. Cardiopulmonary: RRR, no murmurs, rubs or gallops, no JVD noted. Lungs CTAB in anterior and posterior skinner. No peripheral edema. Abdominal exam: Abdomen soft and non-distended. Abdomen non-tender to palpation in all 4 quadrants. Bowel sounds active in LLQ. No hepatosplenomegaly. No ecchymosis Neuro: CN II-XII intact. No nuchal rigidity. No kendrick sign or raccoon eyes. MSK: Mild amount of left paralumbar tenderness. No cervical thoracic tenderness. Full active range of motion of neck. No nuchal rigidity. 5 out of 5 strength in psoas and quadriceps. Patient ambulatory without difficulty. Right leg raise negative bilaterally. No posterior calf tenderness bilaterally, homans sign negative bilaterally. Posterior tibialis and radial pulse +2 bilaterally. Sensation intact in upper and lower extremities. Full active ROM in upper and lower extremities, 5/5 stregnth. : Approximately 2 cm area of fluctuance on left labia. Incision and drainage was performed, small amount of purulent Fluid was expressed. Chaperoned by ZANE Keith. Limitations: no limitations Course Vital Signs 12/16/18 12/17/18 22:16 00:42 Temperature 98.1 F 97.9 F Pulse Rate 78 71 Respiratory 18 18 Rate Blood Pressure 159/93 122/82 O2 Sat by Pulse 100 100 Oximetry Procedures - Incision & Drainage Consent Obtained: verbal consent Indication: Left labial abscess Site: other (Left labial abscess) Size (cm): 2 Anesthetic Used: lidocaine 1% Amount (mLs): 3 I&D Cleaning Method: Alcohol Wipe Scalpel Used: #11 I&D Drainage Obtained: Pus Culture Obtained?: Yes Patient Tolerated Procedure: well, no complications Medical Decision Making - Medical Decision Making 33-year-old female patient past medical history of hypertension presents to ED w ith 2 separate complaints. Patient initial complaint is that at work today she was struck in the back by a high low carrying a wooden pallet. Patient was that she has had in her thoracic region. Patient reports that she fell to the ground. Patient denies any trauma head or neck. Denies any LOC. Patient denies any other injury sustained. 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 Patient is ambulatory without difficulty. Patient denies any loss of bowel or bladder control, lower extremity weakness, paresthesias, saddle anesthesia. Patient has secondary complaint that she has a painful abscess in her genital region. Patient has this ongoing for approximately one week. Patient reports that she did have MRSA in approximately 2003 in her left axilla. Patient denies all other complaints. Patient vital signs stable, afebrile. Physical exam displayed: Normal neurologic exam. Mild amount of left paralumbar tenderness. No cervical thoracic tenderness. Full active range of motion of neck. No nuchal rigidity. 5 out of 5 strength in psoas and quadriceps. Patient ambulatory without difficulty. Approximately 2 cm area of fluctuance on left labia. Incision and drainage was performed, small amount of purulent Fluid was expressed. Culture was obtained. Plain film of thoracic and lumbar spine did not display any acute osseous process. Patient was placed on Bactrim for abscess. UA was contaminated, will culture, hcg negative. Patient to follow up with primary care provider in 1-2 days for continued evaluation both of back pain as well as labial abscess. Patient to return to ED if condition worsens in any way. Case discussed with Dr. Pathak. - Lab Data Lab Results 12/16/18 12/16/18 Range/Units 23:20 23:20 Urine Color Yellow Urine Appearance Cloudy H (Clear) Urine pH 6.0 (5.0-8.0) Ur Specific [place] 1.021 (1.001-1.035) Urine Protein Trace H (Negative) Urine Glucose (UA) Negative (Negative) Urine Ketones Negative (Negative) Urine Blood Small H (Negative) Urine Nitrite Negative (Negative) Urine Bilirubin Negative (Negative) Urine Urobilinogen 2.0 (<2.0) mg/dL Ur Leukocyte Esterase Moderate H (Negative) Urine RBC 6 H (0-5) /hpf Urine WBC 5 (0-5) /hpf Ur Squamous Epith Cells 8 H (0-4) /hpf Calcium Oxalate Crystal Many H (None) /hpf Urine Mucus Many H (None) /hpf Urine HCG, Qual Not Detected (Not Detectd) Disposition Clinical Impression: Abscess, Lumbar back pain Disposition: HOME SELF-CARE Condition: Stable Instructions (If sedation given, give patient instructions): Abscess Incision and Drainage (ED), Abscess (ED), Back Pain (ED) Additional Instructions: Patient to adhere to previously discussed treatment plan and will take medication(s) as directed. Patient to follow up with PCP in 1-2 days. Patient to return to ED if symptoms do not improve. Please follow-up with primary care provider in 1-2 days for continued evaluation both of back pain as well as abscess. Please take Bactrim as prescribed. Please use [id number] Tylenol or Motrin as needed for back pain. Prescriptions: Sulfamethox-Tmp 800-160Mg [Bactrim DS 800-160 mg] 1 tab PO Q12HR #20 tab Is patient prescribed a controlled substance at d/c from ED?: No Referrals: Deniz Carpenter MD [Primary Care Provider] - 1-2 days
[2018-12-16] MEDS ORDERED: LIDOCAINE 1% INJ 10MG/ML (20 ML MDV) SQ STA (23:32)
[2018-12-17 00:14] LABS: Appearance,Urine Cloudy (Clear); Bilirubin,Urine Negative (Negative); Blood,Urine Small (Negative); Calcium Oxalate Crystals,Urine Many /hpf; Color,Urine Yellow; Glucose,Urine (UA) Negative (Negative); Ketones,Urine Negative (Negative); Leukocyte Esterase,Urine Moderate (Negative); Mucus,Urine Many /hpf; Nitrite,Urine Negative (Negative); Protein,Urine Trace (Negative); RBC,Urine 6 /hpf (0-5); Specific Gravity,Urine 1.021 (1.001-1.035); Squamous Epithelial Cell,Urine 8 /hpf (0-4)
[2018-12-17 00:43] VITALS: BP 122/82; PULSE 71; TEMP 97.9
--- NOTE | 2018-12-17 00:56 | XR ---
History: ITS.REASON XR Reason: Pain Exam: XR L SPINE 3 views Comparison: CT of the abdomen and pelvis 09/30/2017 FINDINGS: No evidence of fracture or malalignment. The disc spaces appear within limits. IMPRESSION: No evidence of fracture or malalignment.
--- NOTE | 2018-12-17 01:06 | XR ---
History: ITS.REASON XR Reason: Pain Exam: XR T SPINE 3 views Comparison: Chest x-ray 10/01/2018 FINDINGS: No evidence of fracture or malalignment. IMPRESSION: No evidence of fracture or malalignment.
== END 2018-12-17 01:19 | disposition home or self-care (01) ==
LOC: EC 22:08
DX: N76.4 Abscess of vulva (principal); M54.5 Low back pain; Z86.14 Personal history of Methicillin resistant Staphylococcus aureus infection
CPT/HCPCS: 81001; 81025; 87070; 87205; 72070; 72100; 99284; 10060; J2001

== ENCOUNTER 2021-05-30 00:42 | Emergency (ER) | payer OTHER ==
[2021-05-30 01:00] VITALS: BP 156/72; PULSE 77; RESP 22; TEMP 98.1
[2021-05-30] MEDS ORDERED: ACET/COD 300 MG/30 MG STARTER PACK 6 TAB BTL PO STA (03:11)
[2021-05-30] MEDS ORDERED: AMOXIC-POT CLAV 875MG STARTER PACK 2 TAB BTL PO STA (03:11)
--- NOTE | 2021-05-30 03:16 | ED ---
Skin/Abscess/FB HPI - General Chief complaint: Skin/Abscess/Foreign Body Stated complaint: Abnormal Incision Time Seen by Provider: 05/30/21 03:00 Source: patient Mode of arrival: ambulatory Limitations: no limitations - History of Present Illness Initial comments: 35 year-old female patient presents to the emergency department for evaluation of burning and discharge from a scar. Patient states that the last surgery to the area was 7 years ago. States that for the last month the incision has been reopening and draining fluid. States that the area is always moist and draining. She states she has been chilled and having some nausea. Reports one episode of vomiting today. Denies any history of diabetes or other medical problems. - Related Data Previous Rx's Medication Instructions Recorded Sulfamethox-Tmp 800-160Mg [Bactrim 1 tab PO Q12HR #20 tab 12/17/18 DS 800-160 mg] Cephalexin [Keflex] 500 mg PO Q6H #40 cap 05/30/21 Nystatin 100,000 Unit/gm Powd 1 applic TOPICAL TID #30 gm 05/30/21 [Mycostatin Powder] Allergies Allergy/AdvReac Type Severity Reaction Status Date / Time No Known Allergies Allergy Verified 05/30/21 01:00 Review of Systems ROS Statement: Those systems with pertinent positive or pertinent negative responses have been documented in the HPI. ROS Other: All systems not noted in ROS Statement are negative. Past Medical History Past Medical History: No Reported History, Hypertension History of Any Multi-Drug Resistant Organisms: MRSA Date of last positivie culture/infection: 03/15/2014 MDRO Source:: Left arm Past Surgical History: Section Past Anesthesia/Blood Transfusion Reactions: Postoperative Nausea & Vomiting (PONV) Past Psychological History: Anxiety, Bipolar, Depression Smoking Status: Never smoker Past Alcohol Use History: Occasional Past Drug Use History: None Reported - Past Family History Mother Additional Family Medical History / Comment(s): Mom's side is known to have cancers. Diabetes. Asthma. General Exam Limitations: no limitations General appearance: alert, in no apparent distress, other (This is a well developed, well nourished adult female patient in no acute distress. ) Respiratory exam: Present: normal lung sounds bilaterally. Absent: respiratory distress, wheezes, rales, rhonchi, stridor Cardiovascular Exam: Present: regular rate, normal rhythm, normal heart sounds. Absent: systolic murmur, diastolic murmur, rubs, gallop, clicks GI/Abdominal exam: Present: soft, normal bowel sounds, other (suprapubic scar is moist, erythematous, serous drainage. There is mild surrounding erythema. ). Absent: distended, tenderness, guarding, rebound, rigid Neurological exam: Present: alert, oriented X3, CN II-XII intact Psychiatric exam: Present: normal affect, normal mood Skin exam: Present: warm, dry, intact, normal color. Absent: rash Course Vital Signs 05/30/21 00:55 Temperature 98.1 F Pulse Rate 77 Respiratory 22 Rate Blood Pressure 156/72 O2 Sat by Pulse 99 Oximetry Medical Decision Making - Medical Decision Making 35-year-old female patient presents to the emergency department today for evaluation of drainage and burning to an old scar. Physical examination did reveal surrounding erythema, moisture, and serous drainage. She is afebrile with normal vital signs. We will treat with nystatin powder. Oral antibiotics. She is instructed to cleanse the area 3 times a day and keep as dry as possible. She is given referral to wound care center. She is instructed to follow-up with her primary care physician for recheck in 1-2 days. Return parameters were discussed in detail. She verbalizes understanding and agrees with this plan. Case discussed with my attending Dr. Harvey. Disposition Clinical Impression: Candidal intertrigo, Draining postoperative wound Disposition: HOME SELF-CARE Condition: Good Instructions (If sedation given, give patient instructions): Chronic Wound Care (ED), Skin Yeast Infection (ED) Additional Instructions: Cleanse area 3 times daily, apply powder. Take oral antibiotic as directed. Follow-up with wound care center as directed. Return to the emergency department for any new, worsening, or concerning symptoms. Prescriptions: Cephalexin [Keflex] 500 mg PO Q6H #40 cap Nystatin 100,000 Unit/gm Powd [Mycostatin Powder] 1 applic TOPICAL TID #30 gm Is patient prescribed a controlled substance at d/c from ED?: No Referrals: Feliciano Post MD [Primary Care Provider] - 1-2 days [facility] [NON-STAFF] - 1-2 days Time of Disposition: 03:15
[2021-05-30] MEDS ORDERED: NYSTATIN 100,000 UNIT/GM POWD 15 GM TOPICAL ONE (03:20)
== END 2021-05-30 03:33 | disposition home or self-care (01) ==
LOC: EC 00:42
DX: B37.2 Candidiasis of skin and nail (principal); T81.89XA Other complications of procedures, not elsewhere classified, initial encounter; F31.9 Bipolar disorder, unspecified; F41.9 Anxiety disorder, unspecified
CPT/HCPCS: 99283

== ENCOUNTER → 2021-06-01 | Outpatient (CLI) | payer OTHER ==
[2021-06-01 23:38] LABS: Basophils # (A) 0.04 X 10*3/uL (0.00-0.10); Basophils % (A) 0.5 %; Eosinophils # (A) 0.17 X 10*3/uL (0.04-0.35); Eosinophils % (A) 2.3 %; HCT 32.7 % (37.2-46.3); Lymphocytes # (A) 1.72 X 10*3/uL (0.90-5.00); Lymphocytes % (A) 23.4 %; MCH 25.5 pg (27.0-32.0); MCHC 30.6 g/dL (32.0-37.0); MCV 83.4 fL (80.0-97.0); Monocytes # (A) 0.36 X 10*3/uL (0.20-1.00); Monocytes % (A) 4.9 %; Neutrophils # (A) 5.01 X 10*3/uL (1.80-7.70); Neutrophils % (A) 68.4 %; Platelet Count 358 X 10*3/uL (140-440); RBC 3.92 X 10*6/uL (4.10-5.20); RDW 16.4 % (11.5-14.5); WBC 7.34 X 10*3/uL (4.50-10.00)
[2021-06-02 13:06] LABS: ALT 45 U/L (8-44); AST 38 U/L (13-35)
== END | disposition home or self-care (01) ==
LOC: LABWHC1 15:23
PROVIDERS: ATTEND Nurse Practitioner Family
DX: L40.0 Psoriasis vulgaris (principal)
CPT/HCPCS: 36415; 84450; 84460; 85025

== ENCOUNTER 2021-06-28 19:38 | Emergency (ER) | payer OTHER ==
[2021-06-28 19:54] VITALS: BP 169/109; PULSE 104; RESP 20; TEMP 98
--- NOTE | 2021-06-28 21:04 | ED ---
Skin/Abscess/FB HPI - General Chief complaint: Skin/Abscess/Foreign Body Stated complaint: Facial Pain Time Seen by Provider: 06/28/21 20:36 Source: patient Mode of arrival: ambulatory Limitations: no limitations - History of Present Illness Initial comments: Patient is a 35-year-old female presenting to emergency Department with complaints of a possible cyst on her right jawline. She states she thought it was just a pimple but has been going on for 1-2 weeks now, just painful when she touches it. She denies any facial swelling, no fevers or chills, no nausea or vomiting. She has no further complaints at this time. - Related Data Previous Rx's Medication Instructions Recorded Sulfamethox-Tmp 800-160Mg [Bactrim 1 tab PO Q12HR #20 tab 12/17/18 DS 800-160 mg] Cephalexin [Keflex] 500 mg PO Q6H #40 cap 05/30/21 Nystatin 100,000 Unit/gm Powd 1 applic TOPICAL TID #30 gm 05/30/21 [Mycostatin Powder] Cephalexin [Keflex] 500 mg PO Q6HR 5 Days #20 cap 06/28/21 Allergies Allergy/AdvReac Type Severity Reaction Status Date / Time No Known Allergies Allergy Verified 06/28/21 19:55 Review of Systems ROS Statement: Those systems with pertinent positive or pertinent negative responses have been documented in the HPI. ROS Other: All systems not noted in ROS Statement are negative. Past Medical History Past Medical History: No Reported History, Hypertension History of Any Multi-Drug Resistant Organisms: MRSA Date of last positivie culture/infection: 03/15/2014 MDRO Source:: Left arm Past Surgical History: Section Past Anesthesia/Blood Transfusion Reactions: Postoperative Nausea & Vomiting (PONV) Past Psychological History: Anxiety, Bipolar, Depression Smoking Status: Never smoker Past Alcohol Use History: Occasional Past Drug Use History: None Reported - Past Family History Mother Additional Family Medical History / Comment(s): Mom's side is known to have cancers. Diabetes. Asthma. General Exam - General Exam Comments Initial Comments: GENERAL: Patient is well-developed and well-nourished. Patient is nontoxic and in no acute distress. HEAD: Atraumatic, normocephalic. EYES: Pupils equal round and reactive to light, extraocular movements intact, sclera anicteric, conjunctiva are normal. Eyelids were unremarkable. ENT: TMs normal, nares patent, oropharynx clear without exudates. Moist mucous membranes. NECK: Normal range of motion, supple without lymphadenopathy or JVD. Patient has small pimple-like cyst on the right jawline, there is no erythema, is painful to touch, indurated. LUNGS: Unlabored respirations. Breath sounds clear to auscultation bilaterally and equal. No wheezes rales or rhonchi. HEART: Regular rate and rhythm without murmurs, rubs or gallops. MUSCULOSKELETAL: Normal extremities with adequate strength and normal range of motion, no pitting or edema. No clubbing or cyanosis. NEUROLOGICAL: Patient is alert and oriented x 3. SKIN: Warm, Dry, normal turgor, no rashes or lesions noted, other than above. Limitations: no limitations Course Vital Signs 06/28/21 19:53 Temperature 98.0 F Pulse Rate 104 H Respiratory 20 Rate Blood Pressure 169/109 O2 Sat by Pulse 98 Oximetry Procedures - Procedures Initial comment: I used a 23-gauge needle to try and aspirate from patient's small cyst on the right jaw, no drainage noted. Medical Decision Making - Medical Decision Making Patient is a 35-year-old female here with a small pimple-like cyst on her right jawline. Been on there for 1-2 weeks. It is painful. I do feel this could be an ingrown hair versus pimple versus tiny abscess. I do not feel like this is a lymph node. I did try a needle aspiration without any drainage. I will start her on Keflex. Recommended warm packs the area to a drainage. I recommended following up with her primary care. She is agreeable to this. Return parameters were discussed with her and she verbalized understanding. Case discussed with Dr. Lee. Disposition Clinical Impression: Cyst of jaw Disposition: HOME SELF-CARE Condition: Stable Instructions (If sedation given, give patient instructions): Abscess (ED) Additional Instructions: Please return to the Emergency Department if symptoms worsen or any other concerns. Take antibiotics as prescribed. Apply warm compresses to the area. Please follow-up with your primary care physician. Prescriptions: Cephalexin [Keflex] 500 mg PO Q6HR 5 Days #20 cap Is patient prescribed a controlled substance at d/c from ED?: No Referrals: Feliciano Post MD [Primary Care Provider] - 1-2 days Time of Disposition: 21:03
== END 2021-06-28 21:14 | disposition home or self-care (01) ==
LOC: EC 19:38
DX: M27.40 Unspecified cyst of jaw (principal); F31.9 Bipolar disorder, unspecified; F41.9 Anxiety disorder, unspecified
CPT/HCPCS: 99283

== ENCOUNTER → 2021-11-28 | Outpatient (CLI) | payer OTHER ==
[2021-11-28 19:19] LABS: Basophils # (A) 0.05 X 10*3/uL (0.00-0.10); Basophils % (A) 0.8 %; Eosinophils # (A) 0.17 X 10*3/uL (0.04-0.35); Eosinophils % (A) 2.7 %; HCT 35.2 % (37.2-46.3); HGB 10.1 g/dL (12.0-15.0); Immature Grans, Automated 0.8 %; Lymphocytes # (A) 1.84 X 10*3/uL (0.90-5.00); Lymphocytes % (A) 28.8 %; MCH 23.5 pg (27.0-32.0); MCHC 28.7 g/dL (32.0-37.0); MCV 82.1 fL (80.0-97.0); Mean Platelet Volume 9.6 fL (9.5-12.2); Monocytes # (A) 0.32 X 10*3/uL (0.20-1.00); NRBC Per 100 WBC 0 /100 WBCS (0.0-0.0); Neutrophils # (A) 3.97 X 10*3/uL (1.80-7.70); Neutrophils % (A) 61.9 %; Platelet Count 405 X 10*3/uL (140-440); RBC 4.29 X 10*6/uL (4.10-5.20); RDW 16.4 % (11.5-14.5)
[2021-11-28 19:31] LABS: African American GFR (CKD) 136.4 (60.0-200.0); Non-African American GFR(CKD) 117.7 (60.0-200.0)
[2021-11-28 19:42] LABS: Hepatitis B Surface AB- Quant 3.5 mIU/mL; Hepatitis B Surface Antibody Nonreactive (Nonreactive)
[2021-11-29 01:34] LABS: Hepatitis B Surface Antigen Nonreactive (Nonreactive)
== END | disposition home or self-care (01) ==
LOC: LABWHC1 12:18
PROVIDERS: ATTEND Physician Assistant Medical
DX: L40.0 Psoriasis vulgaris (principal)
CPT/HCPCS: 36415; 82565; 84450; 84460; 85025; 86480; 86706; 87340

== ENCOUNTER → 2024-06-24 | Outpatient (CLI) | payer OTHER ==
--- NOTE | 2024-06-24 16:30 | CT ---
EXAMINATION TYPE: CT knee LT wo con CT DLP: 659.7 mGycm, Automated exposure control for dose reduction was used. DATE OF EXAM: 06/24/2024 2:55 PM COMPARISON: None CLINICAL INDICATION: Female, 38 years old with history of M25.562 ACUTE PAIN LEFT KNEE; PHH, Chronic left knee pain. No known injury. TECHNIQUE: Axial images were obtained of the CT knee LT wo con, Additional coronal and sagittal refor matted images and soft tissue and bone window were obtained for review. 3-D reconstruction was create d on a separate workstation. Contrast used: mL of , (None if empty) Oral contrast used: (None if empty) FINDINGS: There is no evidence of fracture, subluxation, or dislocation. No significant soft tissue swelling or joint effusion is identified. No focal muscular atrophy or edema is identified. No radiop aque foreign body identified. Degeneration changes with joint space narrowing osteophyte formation of the patella, tibial plateau a nd femoral condyles. IMPRESSION: 1. No evidence of fracture. 2. Mild to moderate degeneration changes of the knee with osteophyte formation joint space narrowing .
== END | disposition home or self-care (01) ==
LOC: RADCTMAIN 14:28
PROVIDERS: ATTEND Family Medicine
DX: M25.562 Pain in left knee

== ENCOUNTER → 2024-07-19 | Outpatient (CLI) | payer OTHER ==
--- NOTE | 2024-07-19 08:31 | XR ---
EXAMINATION TYPE: XR pelvis AP view DATE OF EXAM: 07/19/2024 CLINICAL HISTORY: pain TECHNIQUE: Single view the pelvis is submitted. FINDINGS: No evidence for fracture, dislocation or bony lesion. Joint spaces are well-preserved. S I joints appear symmetric. IMPRESSION: 1. No acute fracture or dislocation seen. ICD 10 NO FRACTURE, INITIAL EVALUATION [facility], , 07/19/2024 8:28 AM
--- NOTE | 2024-07-19 11:08 | US ---
EXAMINATION TYPE: US pelvis complete transvag DATE OF EXAM: 07/19/2024 COMPARISON: NONE CLINICAL INDICATION: Female, 38 years old with history of S30.851ASUPERFICIAL FOREIGN BODY OF ABDOMIN AL WALL; Tube ligation done foreign body seen on x ray in doctors office. TECHNIQUE: Transvaginal (TV) and Transabdominal (TA) . Transabdominal grayscale, color Doppler and spectral Doppler sonographic images of the pelvis were acquired. Transvaginal sonographic images wer e medically necessary to better assess the following anatomy: FINDINGS: EXAM MEASUREMENTS: Uterus: 6.7 x 5.3 x 5.4 cm Endometrial Stripe: .9 cm. Correlate with the phase of the patient's menstrual cycle. Right Ovary: 2.3 x 2.3 x 1.8 cm Left Ovary: 2.3 x 2.7 x 2.5 cm 1. Uterus: Retroverted wnl 2. Endometrium: wnl 3. Right Ovary: wnl 4. Left Ovary: wnl 5. Bilateral Adnexa: wnl 6. Posterior cul-de-sac: wnl The tubal ligation clips noted on x-ray are not seen by ultrasound. IMPRESSION: No abnormality identified. A metallic foreign body may not be as well seen by ultrasound compared to plain film x-ray. [facility], Workstation: [id number], 07/19/2024 11:05 AM
== END | disposition home or self-care (01) ==
LOC: RADUSWWP 07:54
PROVIDERS: ATTEND Family Medicine
DX: S30.851A Superficial foreign body of abdominal wall, initial encounter
CPT/HCPCS: 72170; 76830; 76856